=== PATIENT | male | born 1960 | race African-American/Black ===

== ENCOUNTER → 2019-11-29 15:03 | Outpatient (CLI) | payer BC, SELFPAY ==
--- NOTE | ~2019-11-29 | XR_ITS ---
XR knee RT 3V 11/29/2019 15:27 Indication: Right knee pain Procedure: 3 views right knee Comparison: 06/21/2019 Findings: There is mild-moderate osteoarthritis of the right knee, most advanced in the medial compar tment. There is a moderate joint effusion. No acute fracture or traumatic malalignment. Impression: 1: Mild-moderate osteoarthritis of the right knee. 2: Moderate joint effusion. Reviewed, dictated and finalized at location B. RR TECHNICIAN Impression: 1: Mild-moderate osteoarthritis of the right knee. 2: Moderate joint effusion.
== END ==
PROVIDERS: PCP Internal Medicine; Visit Provider Internal Medicine
DX: M25.461 Effusion, right knee (principal); M17.11 Unilateral primary osteoarthritis, right knee
CPT/HCPCS: 73562

== ENCOUNTER 2021-06-18 14:16 | Emergency (ER) | payer BC, SELFPAY ==
[2021-06-18] VITALS (15 sets, daily range): BP systolic 152–245; BP diastolic 98–225; PULSE 84–111; RESP 14–25; TEMP 36.4; O2SAT 96–100
--- NOTE | 2021-06-18 14:27 | ECG_ITS ---
Measurements Intervals [place] Rate: 112 P: 62 FL: 172 QRS: -70 QRSD: 109 T: 49 QT: 364 QTc: 497 Interpretive Statements SINUS TACHYCARDIA LEFT ANTERIOR FASCICULAR BLOCK EXTENSIVE ANTERIOR INFARCT, AGE INDETERMINATE INFERIOR INFARCT, AGE INDETERMINATE ABNORMAL ECG Electronically Signed On 06-18-2021 14:51:29 CDT by Keny Reid D.O.
[2021-06-18 15:06] LABS: Basophils Absolute Auto 0.1 K/mm3 (0.0-0.1); Basophils Percent Auto 0.5 % (0.2-1.2); Eosinophils Absolute Auto 0.3 K/mm3 (0-0.3); Eosinophils Percent Auto 2.8 % (0-4.4); Hematocrit 40.3 % (42.0-52.0); Hemoglobin 12.6 g/dL (14.0-18.0); Immature Granulocyte Absolute 0.03 K/mm3 (0.00-0.031); Immature Granulocyte Percent A 0.3 % (0-0.5); Lymphocytes Absolute Auto 1.12 K/mm3 (0.9-3.2); Lymphocytes Percent Auto 12.2 % (18.3-44.2); Mean Corpuscular HGB Conc 31.3 g/dl (32-36); Mean Corpuscular Hemoglobin 29.9 pg (26-34); Mean Corpuscular Volume 95.7 fl (80-100); Mean Platelet Volume 11.4 fl (7.4-10.4); Monocytes Absolute Auto 0.5 K/mm3 (0.1-0.6); Monocytes Percent Auto 5.1 % (2.6-8.5); Neutrophils Absolute Auto 7.3 K/mm3 (1.3-6.7); Neutrophils Percent Auto 79.1 % (45.5-73.1); Platelet Count Result 299 k/mm3 (150-375); Red Blood Count 4.21 M/mm3 (4.6-6.20); Red Cell Distribution Width 13.3 % (11.5-14.5); White Blood Count 9.2 K/mm3 (4.5-10.0)
[2021-06-18 15:21] LABS: Alanine Aminotransferase 13 U/L (4-50); Albumin Level 3.8 g/dL (3.5-5.1); Alkaline Phosphatase 128 U/L (38-126); Anion Gap 8 mmol/L (8-16); Aspartate Amino Transferase 35 U/L (17-59); Bilirubin,Total 0.3 mg/dL (0.2-1.3); Blood Urea Nitrogen 40 mg/dL (9-20); Calcium 9.1 mg/dL (8.4-10.2); Carbon Dioxide 21 mmol/L (22-30); Chloride 116 mmol/L (98-107); Estimated CRCL calculation 30 ml/min; Estimated Glomerular Filt Rate 25; Glucose 163 mg/dL (65-110); Potassium 3.9 mmol/L (3.4-5.0); Sodium 145 mmol/L (137-145)
--- NOTE | 2021-06-18 15:56 | ED.GENADULT ---
HPI - General Adult General Chief complaint: Recheck/Abnormal Lab/Rx <Lizeth Kauffman MD - Last Filed: 06/19/21 07:43> Stated complaint: blood pressure elevated <Lizeth Kauffman MD - Last Filed: 06/19/21 07:43> Time Seen by Provider: 06/18/21 15:35 <Lizeth Kauffman MD - Last Filed: 06/19/21 07:43> Source: patient <Lizeth Kauffman MD - Last Filed: 06/19/21 07:43> History of Present Illness HPI narrative: Patient is 61 y/o male complaining of high blood pressure. He states that he was in Dr. Laws's office today and sent here because BP was too high. He does not recall how high his BP was. He states that he has known history of hypertension, but ran out of meds 2 weeks ago. This obviously has aggravated his BP. He denies any headache, chest pain or SOB. <Lizeth Kauffman MD - Last Filed: 06/19/21 07:43> Related Data Home medications: Home Medications Medication Instructions Recorded Confirmed amlodipine 10 mg tablet 10 mg PO DAILY 11/20/19 10/03/20 aspirin 81 mg tablet,delayed 81 mg PO DAILY 11/20/19 10/03/20 release losartan 100 mg tablet 100 mg PO DAILY 06/06/20 10/03/20 <Lizeth Kauffman MD - Last Filed: 06/19/21 07:43> Allergies/adverse reactions: Allergies Allergy/AdvReac Type Severity Reaction Status Date / Time No Known Allergies Allergy Unverified 06/18/21 15:34 <Lizeth Kauffman MD - Last Filed: 06/19/21 07:43> Review of Systems Constitutional: Constitutional: Denies chills, Denies fever(s), Denies headache(s) and Denies weakness <Lizeth Kauffman MD - Last Filed: 06/19/21 07:43> Eyes: Eyes: Denies blurry vision <Lizeth Kauffman MD - Last Filed: 06/19/21 07:43> ENT: Denies headache(s) and Denies neck pain <Lizeth Kauffman MD - Last Filed: 06/19/21 07:43> Cardiovascular: Cardiovascular: Denies chest pain and Denies dyspnea <Lizeth Kauffman MD - Last Filed: 06/19/21 07:43> Respiratory: Respiratory: Denies cough and Denies dyspnea <Lizeth Kauffman MD - Last Filed: 06/19/21 07:43> Gastrointestinal: Gastrointestinal: Denies abdominal pain, Denies diarrhea, Denies nausea and Denies vomiting <Lizeth Kauffman MD - Last Filed: 06/19/21 07:43> Genitourinary: Genitourinary: Denies hematuria and Denies dysuria <Lizeth Kauffman MD - Last Filed: 06/19/21 07:43> Musculoskeletal: Musculoskeletal: Denies back pain and Denies neck pain <Lizeth Kauffman MD - Last Filed: 06/19/21 07:43> Neurologic: Denies headache(s) and Denies weakness <Lizeth Kauffman MD - Last Filed: 06/19/21 07:43> [facility] Past Medical History Medical History: Medical History 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 Chronic kidney disease (CKD) stage G3a/A1, moderately decreased glomerular filtration rate (GFR) between 45-59 mL/min/1.73 square meter and albuminuria creatinine ratio less than 30 mg/g 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 and stage 1 chronic kidney disease Obesity Obstructive sleep apnea Osteoarthritis of right knee <Lizeth Kauffman MD - Last Filed: 06/19/21 07:43> Family History Family History: Family History Father Cerebrovascular accident <Lizeth Kauffman MD - Last Filed: 06/19/21 07:43> Social History Social History: Social History Smoking status: Never smoker Second hand tobacco smoke exposure: No Alcohol intake: current Gender identity (if verbalized by the patient): Male <Lizeth Kauffman MD - Last Filed: 06/19/21 07:43> Exam Const: General: no acute distress and well developed <Lizeth Kauffman MD - Last Filed: 06/19/21 07:43> Orientation/consciousness: oriented to person, oriented to place, oriented to time and patient oriented x3 <Lizeth Kauffman MD - Last Filed: 0
[2021-06-18] MEDS: cloNIDine HCL 0.1 MG TABLET PO (15:58)
[2021-06-18] MEDS: amLODIPine BESYLATE 5 MG TABLET 10 MG PO (15:58)
--- NOTE | 2021-06-18 16:04 | PC.NURSE ---
Pt accidently dropped clonidine pill on floor. Had to override in pyxis for a new one
[2021-06-18] MEDS: FUROSEMIDE 20 MG TABLET 40 MG PO (16:26)
[2021-06-18] MEDS: LOSARTAN POTASSIUM 100 MG TABLET PO (16:26)
[2021-06-18] MEDS: hydrALAZINE HCL 20 MG/ML VIAL 10 MG IV PUSH (16:57)
[2021-06-18] MEDS: carvediloL 25 MG TABLET PO (17:49)
[2021-06-18] MEDS: LORazepam (*CRX) 0.5 MG TABLET 1 MG PO (17:49)
[2021-06-18 18:28] LABS: Add Urine Microscopic? YES; Appearance Urine Clear (Clear); Bilirubin Urine Negative (Negative); Blood Urine 1+ (Negative); Color Urine Yellow (Yellow); Glucose Urine UA Negative (Negative); Ketones Urine Negative (Negative); Leukocyte Esterase Ur Negative LEU/UL (Negative); Mucus Urine Rare /lpf; Nitrate Urine Negative (Negative); Protein Urine 3+ mg/dL (Negative); Specific Grav Ur 1.022 (1.001-1.035); Urobilinogen Urine Negative mg/dL (<2.0); WBC Urine 0-3 /hpf
[2021-06-18] MEDS: hydrALAZINE HCL 20 MG/ML VIAL IV PUSH (18:53)
== END 2021-06-18 20:46 | disposition home or self-care (01) ==
PROVIDERS: Emergency Medicine; Emergency Provider Emergency Medicine; PCP Family Medicine
DX: I13.0 Hypertensive heart and chronic kidney disease with heart failure and stage 1 through stage 4 chronic kidney disease, or unspecified chronic kidney disease (principal); Z91.14 Patient's other noncompliance with medication regimen; N18.31 Chronic kidney disease, stage 3a; I50.42 Chronic combined systolic (congestive) and diastolic (congestive) heart failure; M10.30 Gout due to renal impairment, unspecified site; G47.33 Obstructive sleep apnea (adult) (pediatric); M17.11 Unilateral primary osteoarthritis, right knee; E66.9 Obesity, unspecified; Z68.41 Body mass index [BMI] 40.0-44.9, adult; R00.0 Tachycardia, unspecified; I44.4 Left anterior fascicular block; R94.31 Abnormal electrocardiogram [ECG] [EKG]
CPT/HCPCS: 36415; 80053; 81001; 85025; 93005; 96374; 96375; 99284; A9270; J0360

== ENCOUNTER 2021-07-25 20:52 | Inpatient (IN) | payer BC, SELFPAY ==
--- NOTE | ~2021-07-25 | XR_ITS ---
EXAMINATION: XR chest 1V portable 07/25/2021 21:55 INDICATION: Transient alteration of awareness PROCEDURE: AP portable chest COMPARISON: No prior studies for comparison. FINDINGS: The lungs are clear. The cardiomediastinal silhouette is within normal limits. There are no pleural effusions. There is no pneumothorax suspected. IMPRESSION: 1: NO ACUTE CARDIOPULMONARY DISEASE. Reviewed, dictated and finalized at location A.
--- NOTE | ~2021-07-25 | CT_ITS ---
EXAMINATION: CT brain wo con DATE: 07/25/2021 22:18 INDICATION: Altered mental status TECHNIQUE: Computed tomography (CT) of the head was performed without intravenous contrast. The dose- length product was 605.33 mGy-cm. Automated exposure control and iterative reconstruction technique w ere employed. COMPARISON: None FINDINGS: There is hypodensity of the left parietal lobe consistent with acute/subacute infarction. M ild mass effect. No hemorrhage. No midline shift. There is a chronic right cerebellar infarction. The re is intracranial atherosclerosis. No ventriculomegaly or midline shift. Basilar cisterns are patent . Paranasal sinuses and mastoids are pneumatized. Midline sagittal images are unremarkable. IMPRESSION: 1. Regional hypodensity of the left parietal lobe, consistent with acute/subacute infarction. No asso ciated hemorrhage. 2: Chronic right cerebellar infarction. Dr. Akbar Cain discussed with Dr. Devante Morataya MD at 07/25/2021 22:23 CDT. Reviewed, dictated and finalized at location A. IMPRESSION: 1. Regional hypodensity of the left parietal lobe, consistent with acute/subacu te infarction. No associated hemorrhage. 2: Chronic right cerebellar infarction. Dr. Akbar Cain discussed with Dr. Devante Morataya MD at 07/25/2021 22:23 CDT .
--- NOTE | ~2021-07-25 | US_ITS ---
EXAMINATION: US renal BI DATE: 07/26/2021 12:29 INDICATION: Renal insufficiency TECHNIQUE: Multiple grayscale and Doppler ultrasound images of the kidneys were obtained. COMPARISON: 06/19/2019 FINDINGS: The right kidney measures 10.6 x 5.7 x 5.7 cm and contains an 8 mm cyst. The left kidney me asures 9.4 x 5.3 x 5.1 cm and contains a 10 mm cyst. The kidneys demonstrate increased parenchymal ec hogenicity. There is no hydronephrosis. The bladder is decompressed by Irwin catheter. IMPRESSION: 1. Medical renal disease. Reviewed, dictated and finalized at location B. IMPRESSION: 1. Medical renal disease.
--- NOTE | ~2021-07-25 | MR_ITS ---
EXAMINATION: MR brain/brain stem wo con EXAM DATE: 07/26/2021 16:26 INDICATION: Stroke. Altered mental status. TECHNIQUE: Magnetic resonance imaging (MRI) of the brain/brain stem obtained without contrast. Galloitt al T1, axial diffusion, gradient echo (T2*), T1, T2, FLAIR sequences obtained. Correlation is made t o head CT from yesterday. FINDINGS: There is moderate to large left frontoparietal lobe acute infarction. There is no hemorrhag ic conversion. Small old right cerebellar infarction. Mild microangiopathy. No extra-axial collection , obstructive hydrocephalus or brain mass. Orbits and soft tissues are unremarkable. IMPRESSION: 1. Moderate to large acute left frontoparietal lobe infarction. 2. Small old right cerebellar infarction. 3. Mild microangiopathy. Reviewed, dictated and finalized at location A.
--- NOTE | ~2021-07-25 | US_ITS ---
EXAMINATION: US carotid duplex BI DATE: 07/26/2021 12:26 INDICATION: Left parietal lobe infarct. TECHNIQUE: Grayscale, color Doppler, and pulsed Doppler images of the cervical carotid arteries were obtained. The degree of vessel stenosis is placed in one of the following categories: normal, <50%, 5 0-69%, >=70% but less than near-occlusion, near-occlusion, or total occlusion. Note that percent sten osis relative to normal distal artery lumen diameter is indirectly measured from velocity measurement s as described by Sher, et al. Radiology 2003; 229:340-346. COMPARISON: None. FINDINGS: RIGHT: The right common carotid artery (CCA) peak systolic velocity (PSV) is 82 cm/s. The right internal car otid artery (ICA) PSV is 62 cm/s. The right ICA end-diastolic velocity (EDV) is 22 cm/s. The right IC A/CCA PSV ratio is 0.8. Grayscale and color Doppler images yield an estimate of <50% diameter reducti on from plaque in the ICA. There is antegrade flow in the right vertebral artery. LEFT: The left CCA PSV is 114 cm/s. The left ICA PSV is 71 cm/s. The left ICA EDV is 24 cm/s. The left ICA/ CCA PSV ratio is 0.6. Grayscale and color Doppler images yield an estimate of <50% diameter reduction from plaque in the ICA. There is antegrade flow in the left vertebral artery. IMPRESSION: 1. <50% stenosis in the right internal carotid artery. 2. <50% stenosis in the left internal carotid artery. Reviewed, dictated and finalized at location A.
[2021-07-25 20:59] VITALS: BP 265/148; PULSE 83; RESP 17; TEMP 36.5; O2SAT 100
--- NOTE | 2021-07-25 21:05 | ECG_ITS ---
Measurements Intervals [place] Rate: 82 P: 54 LA: 212 QRS: -63 QRSD: 116 T: 86 QT: 421 QTc: 493 Interpretive Statements SINUS RHYTHM WITH FIRST DEGREE AV BLOCK POSSIBLE LEFT ATRIAL ENLARGEMENT LEFT ANTERIOR FASCICULAR BLOCK VOLTAGE CRITERIA FOR LVH BASELINE ARTIFACT- V1 BORDERLINE ST-T WAVE ABNORMALITY- HIGH LATERAL LEADS ABNORMAL ECG Electronically Signed On 07-26-2021 6:27:42 CDT by Keny Reid D.O.
[2021-07-25 21:33] VITALS: BP 255/137; PULSE 78
[2021-07-25] MEDS: niCARdipine 20 MG/200 ML 20 MG/200 ML BAG 50 MG IV CONT (21:33)
[2021-07-25 21:40] LABS: Alveolar/Arterial O2 Gradient 24.7 mmHg; Base Excess ABG -4.7 mEq/l (+/-2.0); Fractional Inspired Oxygen 21 %; HCO3 ABG 19.1 mEq/l (22.0-26.0); Oxygen Content ABG 15.8 %vol (16.0-22.0); Oxygen Saturation ABG 96.8 % (95.0-100.0); Oxyhemoglobin 95.6 % THb (90.0-100.0); PCO2 ABG 31.4 mmHg (35.0-45.0); PO2 ABG 87.4 mmHg (80.0-100.0); PO2 FiO2 Ratio Arterial Blood 4.16 %; Total Hemoglobin 11.7 g/dL (12.0-18.0); pH ABG 7.402 (7.350-7.450)
[2021-07-25 21:41] LABS: Device ROOM AIR; Modified Allen's Test Pass; Site Drawn RIGHT RADIAL
--- NOTE | 2021-07-25 22:22 | ED.AMS ---
HPI - Altered Mental Status General Chief Complaint: Altered Mental Status Stated Complaint: not acting right Time Seen by Provider: 07/25/21 21:11 History of Present Illness HPI narrative: Patient presented with altered mental status history obtained from EMS and neighbor. Patient's neighbor saw his driveway continually pressing his break even though his car was already parked. She went to see what was going on and when attempting to talk to the patient patient when he was responding with answers that made no sense. She called EMS and was brought in for evaluation. EMS noted some antihypertensive medications but was unable to get any other history from the patient. Related Data Home Medications Medication Instructions Recorded Confirmed amlodipine 10 mg PO DAILY 07/26/21 07/26/21 carvedilol 25 mg PO BID 07/26/21 07/26/21 clonidine HCl 0.1 mg PO TID 07/26/21 07/26/21 furosemide 40 mg PO BID 07/26/21 07/26/21 losartan 100 mg PO DAILY 07/26/21 07/26/21 rosuvastatin 10 mg PO DAILY 07/26/21 07/26/21 Allergies Allergy/AdvReac Type Severity Reaction Status Date / Time No Known Allergies Allergy Verified 07/25/21 21:18 Review of Systems Review of Systems: ROS unobtainable: Yes unobtainable due to mental status PMFSH Family History Family History (Updated 07/26/21 @ 03:58 by Lianne Mcmahan RN) Father Cerebrovascular accident Mother Cerebrovascular accident Sibling Acute myocardial infarction Social History Social History Smoking status: Never smoker Second hand tobacco smoke exposure: No Alcohol intake: never Substance use: never Spiritual care concerns: No Exam Narrative: GENERAL: Well-appearing, well-nourished, and in no acute distress. HEAD: Normocephalic, atraumatic. EYES: PERRLA and EOMI. ENT: Nares clear, no rhinorrhea or epistaxis. Mucous membranes moist. NECK: Supple. No masses. No JVD CHEST: Clear to auscultation. No respiratory distress. No wheezes rales or rhonchi HEART: Regular rate and rhythm. No murmur heard. Normal peripheral pulses. ABDOMEN: Soft, nontender, nondistended, normal active bowel sounds. EXTREMITIES: Normal range of motion. 2+ pitting edema symmetric in the bilateral lower extremities SKIN: Warm, dry, no rash. NEURO: Cranial nerves II through XII are intact. There is pronator drift on the right upper extremity otherwise patient has 5 out of 5 strength in all extremities and is responding to verbal commands alert and oriented to self PSYCH: Normal mood and affect. Course Reevaluation(s) Reevaluation #1: Patient has a no significant change in his mental status or his neurological exam. Case discussed with progressive die maker, neurology and hospitalist. Patient be admitted for further manage Date: 07/25/21 Time: 23:51 Vital Signs Vital signs: Vital Signs Temperature 36.5 C 07/25/21 20:59 Pulse Rate 83 07/25/21 20:59 Respiratory Rate 17 07/25/21 20:59 Blood Pressure 265/148 H 07/25/21 20:59 Pulse Oximetry 100 07/25/21 20:59 Temperature 36.8 C 07/26/21 04:00 Pulse Rate 93 07/26/21 07:54 Respiratory Rate 14 07/26/21 06:00 Blood Pressure 177/102 H 07/26/21 06:00 Pulse Oximetry 99 07/26/21 06:00 MDM - Altered Mental Status MDM Narrative Medical decision making narrative: Patient presented with altered mental status on initial evaluation his neurological exam was nonfocal there is a questionable pronator drift on the right upper extremity otherwise cranial nerves appear to be intact he had appropriate strength. Patient's vital signs were significant for hypertension. Given a nonfocal exam and elevated blood pressure primary concern was for hypertensive emergency and hypertensive encephalopathy. Patient was started on a nicardipine drip. Imaging and labs obtained. Imaging concerning for acute versus subacute MCA infarct Case was discussed with neurology given patient's last se
[2021-07-25 22:40] VITALS: BP 211/110; PULSE 94; RESP 16; O2SAT 100
[2021-07-25] MEDS: ASPIRIN 81 MG CHEWABLE TABLET 324 MG PO (22:50)
[2021-07-25] MEDS: CLOPIDOGREL BISULFATE 75 MG TABLET PO (22:50)
[2021-07-25 23:05] LABS: Acetaminophen < 10 ug/mL (10-30); Ammonia < 9 umol/L (9-30); Ethanol < 10 mg/dL (<10); Salicylate < 1.0 mg/dL (2-20)
[2021-07-25 23:11] LABS: Basophils Absolute Auto 0.1 K/mm3 (0.0-0.1); Basophils Percent Auto 0.9 % (0.2-1.2); Eosinophils Absolute Auto 0.2 K/mm3 (0-0.3); Eosinophils Percent Auto 2.7 % (0-4.4); Hematocrit 38.8 % (42.0-52.0); Hemoglobin 12.3 g/dL (14.0-18.0); Immature Granulocyte Absolute 0.01 K/mm3 (0.00-0.031); Immature Granulocyte Percent A 0.2 % (0-0.5); Lymphocytes Percent Auto 14.1 % (18.3-44.2); Mean Corpuscular HGB Conc 31.7 g/dl (32-36); Mean Corpuscular Hemoglobin 30.3 pg (26-34); Mean Corpuscular Volume 95.6 fl (80-100); Mean Platelet Volume 12.5 fl (7.4-10.4); Monocytes Absolute Auto 0.4 K/mm3 (0.1-0.6); Monocytes Percent Auto 6.7 % (2.6-8.5); Neutrophils Absolute Auto 4.8 K/mm3 (1.3-6.7); Neutrophils Percent Auto 75.4 % (45.5-73.1); Platelet Count Result 251 k/mm3 (150-375); Red Blood Count 4.06 M/mm3 (4.6-6.20); Red Cell Distribution Width 12.3 % (11.5-14.5); White Blood Count 6.4 K/mm3 (4.5-10.0)
[2021-07-25 23:12] LABS: Prothrombin Time 12.8 Seconds (11.1-14.7)
[2021-07-25 23:13] LABS: Ethanol < 10 mg/dL (<10); Partial Thromboplastin Time 30.2 SECONDS (22.3-36.8)
[2021-07-25 23:16] LABS: Alanine Aminotransferase 15 U/L (4-50); Albumin Level 3.9 g/dL (3.5-5.1); Alkaline Phosphatase 122 U/L (38-126); Anion Gap 10 mmol/L (8-16); Aspartate Amino Transferase 32 U/L (17-59); Bilirubin,Total 0.5 mg/dL (0.2-1.3); Blood Urea Nitrogen 52 mg/dL (9-20); Calcium 9.8 mg/dL (8.4-10.2); Carbon Dioxide 18 mmol/L (22-30); Chloride 110 mmol/L (98-107); Estimated CRCL calculation 26 ml/min; Estimated Glomerular Filt Rate 20; Glucose 98 mg/dL (65-110); Potassium 3.9 mmol/L (3.4-5.0); Sodium 138 mmol/L (137-145)
[2021-07-25 23:23] LABS: NT Pro B Type Natriuretic Pept 713 pg/mL (5-100)
[2021-07-25 23:33] VITALS: BP 159/96; PULSE 93
[2021-07-25 23:53] LABS: Creatine Kinase 352 U/L (55-170); Troponin I 0.132 ng/mL (0.000-0.034)
[2021-07-26] VITALS (20 sets, daily range): BP systolic 143–227; BP diastolic 90–127; PULSE 64–93; RESP 12–24; TEMP 36.3–36.8; O2SAT 93–100; BMI 36.6
--- NOTE | 2021-07-26 | ECHO_ITS ---
Patient Info Name: Vladimir Montes Age: 61 years : 1960 Gender: Male Ht: 73 in Wt: 277 lbs BSA: 2.59 m2 HR: 76 bpm BP: 177 / 102 mmHg Technical Quality: Fair Exam Date: 07/26/2021 11:08 AM Exam Location: [facility] Pulmonary Patient Status: Inpatient Admit Date: 07/25/2021 Staff Ordering Physician: Kael Garcia MD [employer] M113: Tiffany Arellano RDCS Attending Provider: Kael Garcia MD Exam Type: CA echo doppler color flow Study Info Complete two-dimensional, color flow and Doppler transthoracic echocardiogram is performed. Summary 1. Complete two-dimensional, color flow and Doppler transthoracic echocardiogram is performed. 2. Left ventricular systolic function is normal, estimated at 65-70%. 3. There is severely increased left ventricular wall thickness. 4. The left ventricular diastolic function is grade I diastolic dysfunction. 5. There is mild aortic valve sclerosis. 6. There is mild tricuspid valve regurgitation. 7. No pulmonary hypertension, estimated pulmonary arterial systolic pressure is 9 mmHg. Left Ventricle Left ventricular chamber dimension is normal. Left ventricular systolic function is normal, estimated at 65-70%. There is severely increased left ventricular wall thickness. Left ventricular septal wall motion is normal. The left ventricular diastolic function is grade I diastolic dysfunction. Right Ventricle Right ventricular chamber dimension is normal. Right ventricular systolic function is normal. Left Atria Left atrial chamber dimension is normal. Right Atria Right atrial chamber dimension is normal. Atrial Septum Intact interatrial septum visualized by color flow imaging. Aortic Valve The aortic valve is trileaflet. There is mild aortic valve sclerosis. There is no aortic valve stenosis. There is no aortic valve regurgitation. Pulmonic Valve The pulmonic valve is normal. There is no pulmonic valve stenosis. There is no pulmonic regurgitation. Mitral Valve The mitral valve has normal leaflets. There is no mitral valve stenosis. There is no mitral valve regurgitation. Tricuspid Valve The tricuspid valve leaflets are normal. There is no significant tricuspid valve stenosis. There is mild tricuspid valve regurgitation. No pulmonary hypertension, estimated pulmonary arterial systolic pressure is 9 mmHg. Pericardium/Pleural The pericardium appears normal. There is no pericardial effusion. Inferior Vena Cava Normal inferior vena cava with >50% collapse upon inspiration consistent with Empty right atrial pressure, 5 mmHg. Aorta The aortic root size at the sinus of Valsalva is normal. The prox ascending aorta size is normal. Left Ventricular Outflow Tract Name Value Normal LVOT 2D LVOT Diameter 2.0 cm LVOT Doppler LVOT Peak Gradient 4 mmHg LVOT Mean Gradient 3 mmHg LVOT VTI 18 cm LVOT VTI/AV VTI Ratio 0.6 LVOT Stroke Volume 56 ml LVOT CO 4.1 l/min
[2021-07-26 00:10] LABS: Add Urine Microscopic? YES; Appearance Urine Clear (Clear); Bilirubin Urine Negative (Negative); Blood Urine 2+ (Negative); Color Urine Straw (Yellow); Glucose Urine UA Negative (Negative); Ketones Urine Negative (Negative); Leukocyte Esterase Ur Negative LEU/UL (Negative); Mucus Urine Rare /lpf; Nitrate Urine Negative (Negative); Protein Urine 3+ mg/dL (Negative); Specific Grav Ur 1.012 (1.001-1.035); Squamous Epithelial Cell Urine Rare /hpf (Few); Urobilinogen Urine Negative mg/dL (<2.0)
[2021-07-26 00:15] LABS: Amphetamine Screen Urine Negative (Negative); Barbiturate Screen Urine Negative (Negative); Benzodiazepines Screen Urine Negative (Negative); Cannabinoid Screen Urine Negative (Negative); Cocaine Screen Urine Negative (Negative); Methadone Screen Urine Negative (Negative); Opiate Screen Urine Negative (Negative); Phencyclidine Screen Urine Negative (Negative)
[2021-07-26] MEDS: niCARdipine 20 MG/200 ML 20 MG/200 ML BAG 50 MG IV CONT (01:45)
[2021-07-26] MEDS: SODIUM CHLORIDE 0.9% IV 1,000 ML 125 ML IV CONT (01:48)
--- NOTE | 2021-07-26 03:50 | PC.NURSE ---
This patient, Simon Gilbert Jr., was admitted to Intensive Care Unit-4 @ 0315 . Patient/family oriented to hospital policies and general routines including ID bracelet, bed and alarms, visiting hours, pain management, procedures, bathroom and other care routines, personal items, smoking policy, room service/diet, and visiting hours. Information on how to activate the Rapid Response Team has been discussed. Patient/Family are encouraged to report perceived risks to care and to ask questions if they do not understand what they are told or what they should do.
--- NOTE | 2021-07-26 05:01 | PM.IMHP ---
H&P: HPI History of Present Illness Date/Time: 07/26/21 05:01 Chief Complaint: Altered mental status Narrative: patient presents to the hospital today with altered mental status. Apparently he was noted to be confused in the driveway in the car and pressing his break continuously. The neighbor went to see what was going on and when attempted to talk to the patient he responded with answers that made no sense and hence she called the EMS and was brought in for evaluation. Upon arrival to the ER his initial vitals were extremely elevated at 260 5/148 and hence was put on nicardipine drip. He remained confused but able to move all his extremities. When asked question only able to give few of the answers like his name. Otherwise noted to have difficulty with words and some of the words does not make sense at all. He is otherwise following all my commands and follows them appropriately. Rest of the review of system could not be completed because of the mental status. Review of Systems Review of Systems: ROS unobtainable: Yes unobtainable due to medical condition and unobtainable due to mental status [facility] Family History Family History (Updated 07/26/21 @ 03:58 by Lianne Mcmahan RN) Father Cerebrovascular accident Mother Cerebrovascular accident Sibling Acute myocardial infarction Social History Social History Smoking status: Never smoker Second hand tobacco smoke exposure: No Alcohol intake: never Substance use: never Spiritual care concerns: No Meds Home Medications and Allergies Home Medications Medication Instructions Recorded Confirmed Type amlodipine 10 mg PO DAILY 07/26/21 07/26/21 History carvedilol 25 mg PO BID 07/26/21 07/26/21 History clonidine HCl 0.1 mg PO TID 07/26/21 07/26/21 History furosemide 40 mg PO BID 07/26/21 07/26/21 History losartan 100 mg PO DAILY 07/26/21 07/26/21 History rosuvastatin 10 mg PO DAILY 07/26/21 07/26/21 History Allergies Allergy/AdvReac Type Severity Reaction Status Date / Time No Known Allergies Allergy Verified 07/25/21 21:18 Vital Signs Vital Signs - 24 hr 07/25/21 20:59 07/25/21 21:33 07/25/21 22:40 Temperature 97.7 F Pulse Rate 83 78 94 Respiratory Rate 17 16 Blood Pressure 265/148 H 255/137 H 211/110 H Pulse Oximetry 100 100 07/25/21 23:33 07/26/21 00:15 07/26/21 01:18 Temperature Pulse Rate 93 82 90 Respiratory Rate 21 H 23 H Blood Pressure 159/96 H 167/95 H 211/114 H Pulse Oximetry 100 100 07/26/21 01:45 07/26/21 02:25 Temperature Pulse Rate 85 87 Respiratory Rate 16 Blood Pressure 227/119 H 219/123 H Pulse Oximetry 100 Exam Narrative: GENERAL: Well-appearing, well-nourished, and in no acute distress. HEAD: Normocephalic, atraumatic. EYES: PERRLA and EOMI. ENT: Nares clear, no rhinorrhea or epistaxis. Mucous membranes moist. NECK: Supple. No masses. No JVD CHEST: Clear to auscultation. No respiratory distress. No wheezes rales or rhonchi HEART: Regular rate and rhythm. No murmur heard. Normal peripheral pulses. ABDOMEN: Soft, nontender, nondistended, normal active bowel sounds. EXTREMITIES: Normal range of motion. No edema cyanosis or clubbing SKIN: Warm, dry, no rash. NEURO: Cranial nerves II through XII are intact. no motor deficits 5 x 5 motor strength in all 4 extremities deep tendon reflexes equal and symmetrical Babinski's sign equivocal expressive aphasia noted follows verbal commands appropriately PSYCH: Normal mood and affect. H&P: Results Labs Labs: Short CBC 07/25/21 Range/Units 22:42 WBC 6.4 (4.5-10.0) K/mm3 Hgb 12.3 L (14.0-18.0) g/dL Hct 38.8 L (42.0-52.0) % Plt Count 251 (150-375) k/mm3 BMP 07/25/21 22:42 Sodium 138 Potassium 3.9 Chloride 110 H Carbon Dioxide 18 L BUN 52 H Creatinine 3.80 H Glucose 98 Calcium 9.8 Cardiac Enzymes 07/25/21 Range/Units 22:42 Total Cr
[2021-07-26 06:04] LABS: Basophils Percent Auto 0.7 % (0.2-1.2); Eosinophils Absolute Auto 0.2 K/mm3 (0-0.3); Eosinophils Percent Auto 2.7 % (0-4.4); Hematocrit 34.4 % (42.0-52.0); Hemoglobin 10.9 g/dL (14.0-18.0); Immature Granulocyte Absolute 0.02 K/mm3 (0.00-0.031); Immature Granulocyte Percent A 0.4 % (0-0.5); Lymphocytes Absolute Auto 0.94 K/mm3 (0.9-3.2); Lymphocytes Percent Auto 16.7 % (18.3-44.2); Mean Corpuscular HGB Conc 31.7 g/dl (32-36); Mean Corpuscular Hemoglobin 29.3 pg (26-34); Mean Corpuscular Volume 92.5 fl (80-100); Mean Platelet Volume 12.6 fl (7.4-10.4); Monocytes Absolute Auto 0.4 K/mm3 (0.1-0.6); Monocytes Percent Auto 7.7 % (2.6-8.5); Neutrophils Percent Auto 71.8 % (45.5-73.1); Platelet Count Result 231 k/mm3 (150-375); Red Blood Count 3.72 M/mm3 (4.6-6.20); Red Cell Distribution Width 12.2 % (11.5-14.5); White Blood Count 5.6 K/mm3 (4.5-10.0)
[2021-07-26 06:13] LABS: Alanine Aminotransferase 12 U/L (4-50); Albumin Level 3.3 g/dL (3.5-5.1); Alkaline Phosphatase 103 U/L (38-126); Anion Gap 6 mmol/L (8-16); Aspartate Amino Transferase 31 U/L (17-59); Bilirubin,Total 0.6 mg/dL (0.2-1.3); Blood Urea Nitrogen 50 mg/dL (9-20); Calcium 9.2 mg/dL (8.4-10.2); Carbon Dioxide 21 mmol/L (22-30); Chloride 110 mmol/L (98-107); Estimated CRCL calculation 30 ml/min; Estimated Glomerular Filt Rate 23; Glucose 83 mg/dL (65-110); Potassium 3.4 mmol/L (3.4-5.0); Sodium 137 mmol/L (137-145)
[2021-07-26 06:17] LABS: Cholesterol 252 mg/dL (0-200); HDL Direct 46 mg/dL; Triglycerides 170 mg/dL (<150)
[2021-07-26 06:28] LABS: LDL Cholesterol Direct 125 mg/dL
[2021-07-26 07:43] LABS: Hemoglobin A1C 4.8 % (<5.7)
[2021-07-26] MEDS: LOSARTAN POTASSIUM 100 MG TABLET PO (07:53)
[2021-07-26] MEDS: cloNIDine HCL 0.1 MG TABLET PO ×3 (07:53→18:12)
[2021-07-26] MEDS: ROSUVASTATIN 10 MG TABLET PO (07:54)
[2021-07-26] MEDS: amLODIPine BESYLATE 5 MG TABLET 10 MG PO (07:54)
[2021-07-26] MEDS: ASPIRIN 81 MG ENTERIC TABLET PO (07:54)
[2021-07-26] MEDS: CLOPIDOGREL BISULFATE 75 MG TABLET PO (07:54)
[2021-07-26] MEDS: carvediloL 25 MG TABLET PO ×2 (07:54→18:12)
[2021-07-26] MEDS: niCARdipine 20 MG/200 ML 20 MG/200 ML BAG 25 MG IV CONT (09:13)
--- NOTE | 2021-07-26 09:23 | WPDCNINT ---
Assessment and Plan Assessment and plan (1) Acute stroke due to ischemia: Code(s): I63.9 - Cerebral infarction, unspecified Status: Acute Assessment and Plan: Acute /subacute left parietal area. Patient presented out of the tPA window. stroke workup with MRI brain. Carotid ultrasound. Echo fasting lipid profile Neurochecks Neurology consult Speech PT and OT evaluation (2) Acute encephalopathy: Code(s): G93.40 - Encephalopathy, unspecified Status: Acute Assessment and Plan: Likely secondary to CVA or hypertensive emergency Patient is alert awake but unable to check orientation due to aphasia Neurochecks (3) Hypertensive emergency: Code(s): I16.1 - Hypertensive emergency Status: Acute Assessment and Plan: Continue nicardipine infusion to drop blood pressure by 15-20% with goal of systolic of 170-180 Patient's p.o. home meds of losartan amlodipine Coreg and clonidine were resumed (4) Acute kidney injury: Code(s): N17.9 - Acute kidney failure, unspecified Status: Acute Assessment and Plan: Baseline creatinine is unknown patient presented with creatinine 3.8 Improved to 3.3 today Continue monitor urine output electrolytes creatinine Renal ultrasound Consult nephrology (5) Edema: Code(s): R60.9 - Edema, unspecified Status: Acute Assessment and Plan: Lower extremity edema appears chronic Hold Lasix today due to elevated creatinine (6) Elevated troponin: Code(s): R77.8 - Other specified abnormalities of plasma proteins Status: Acute Assessment and Plan: Slightly elevated troponin in the presence of hypertensive emergencies stroke and acute kidney injury Likely stress mediated response Patient denies any chest pain at this time EKG is abnormal but does not show any ST elevations. Serial troponins, aspirin, echo Additional Plan DVT prophylaxis -SCDs until blood pressure is adequately controlled Nutrition -speech evaluation Code Status - Full Code Will discuss with hospice social worker regarding trying to contact his family if there is one Total Critical Care Time - 35 minutes Due to a high probability of clinically significant, life threatening deterioration, the patient required my highest level of preparedness to intervene emergently and I personally spent this critical care time directly and personally managing the patient. This critical care time included obtaining a history; examining the patient; pulse oximetry; ordering and review of studies; arranging urgent treatment with development of a management plan; evaluation of patient's response to treatment; frequent reassessment; and discussions with other providers. It was exclusive of separately billable procedures and treating other patients and teaching time. Please see Assessment and Plan section and the rest of the note for further information on patient assessment and treatment Family Program Specialist Consult Note Consult date: 07/26/21 Time Seen: 07:30 HPI: Simon Gilbert Jr. is a 61 year old male was brought to ED yesterday when his neighbor due to altered mental status. Patient's neighbor noticed patient in his driveway behaving inappropriately and when he approached him and try to talk to him patient appeared confused and had inappropriate answers. Hence he brought him to the ED. ED patient was unable to provide any meaningful history. His workup showed that he had acute/ subacute CVA on his head CT, his blood pressure was elevated with systolic into 220s and he also had elevated creatinine. Patient was admitted with diagnosis of ischemic CVA and hypertensive emergency. Started on IV nicardipine infusion for blood pressure control. Neurology was consulted. This morning patient is awake, alert but again unable to provide any meaningful history. His speech is inappropriate with use of inappropriate words. He appears to understand the questions and nodes his head appropria
[2021-07-26 10:43] LABS: Phosphorus 4.5 mg/dL (2.5-4.5)
[2021-07-26 10:47] LABS: Troponin I 0.152 ng/mL (0.000-0.034)
--- NOTE | 2021-07-26 12:38 | PM.EVENT ---
Event Note Event Note Event Note: EMR software would not allow me to open a consult note. Vladimir is a very pleasant 61-year-old gentleman who has multiple medical problems including severe hypertension, medicine noncompliance, chronic kidney disease with a baseline creatinine around 3, anemia, gout, hyperlipidemia pulmonary hypertension, dilated nonischemic cardiomyopathy. The patient came in the hospital because he was found by neighbors in his car pushing his brakes over no over again. He was unable to speak rationally and so they called 911 and he was brought to the ER. He was evaluated in the emergency room and found to have a stroke. He had a CT of the head which showed a lucency in the left parietal lobe. He is going for an MRI soon. His blood pressure was very high, 265/148 on 1st check. His placed on meds, admitted to the ICU. The patient is currently on a nicardipine drip to titrate between 170 and 180 for permissive hypertension because of the acute stroke. The patient is able to give some history. He recognized me. He has trouble with most words. He says that he has been taking his blood pressure at home and has been getting readings between 130 and 150. He has not been getting anything above 170 at home he says. He does have a history of not taking his medications in the past but says that he has been taking his meds. ROS: He denies any chest pain or shortness of breath. No skin rash or joint pains. No ENT or psychiatric or endocrine issues. No swelling joint pains or skin rash. No nausea vomiting diarrhea constipation or abdominal pain. Neurologic is as above . No urologic issues. No bloody urine foamy urine kidney stones or bladder infections. Past history is as above allergies: NKDA social history he does not smoke or drink family history: Unavailable physical exam: Well-developed well-nourished male in no acute distress. Skin no rash or subcu nodules. Head normocephalic atraumatic. Eyes normal sclerae and conjunctivae. Mouth normal lips teeth and gums. Neck no nodes no thyromegaly no carotid bruits. Lungs are symmetric and clear to auscultation and percussion. Heart regular rate and rhythm no rub or gallop. Abdomen bowel sounds positive soft nontender no HSM no masses no bruits. Extremities show no cyanosis clubbing or edema. Psych he the patient is calm and comfortable not anxious or depressed in surprisingly good spirits. Neuro: Alert. It is unclear whether he is oriented. Motor 5/5 in all groups. Cranial nerves 2-12 look good. Tongue is midline. Cerebellar normal rapid alternating movements. Reflexes 2+ and equal in the biceps tendons. Labs: Hemoglobin 12.3. Sodium 138, potassium 3.9, CO2 18, BUN 52, creatinine 3.8, calcium 9.8, CK 352, ALT 15, UA shows 3+ protein. CT of the brain shows a lucency in the left parietal lobe. Impression: 1. This patient has chronic kidney disease. His baseline creatinine is around 3. This is due to hypertension and vascular disease. His creatinine seems stable right now. He is making urine. Will follow things along. 2. The patient had a stroke. He has aphasia. At this point he does not seem to have any gross weakness on 1 side or the other. Hopefully things will gradually improve. From descriptions it sounds like he is more interactive with me than he was last evening. 3. The patient has hypertension. His blood pressure was extremely high when he came into the hospital. This is much better now, at goal for permissive hypertension. 4. The patient has anemia. This is only mild. No need for Epogen. 5. The patient has CKD MBD. Will check a phosphorus level in the morning. 6. The patient has hyperlipidemia. He is on rosuvastatin for this.
[2021-07-26 17:19] LABS: Troponin I 0.123 ng/mL (0.000-0.034)
[2021-07-27] VITALS (17 sets, daily range): BP systolic 138–210; BP diastolic 89–116; PULSE 63–74; RESP 14–19; TEMP 36.2–36.9; O2SAT 98–99
[2021-07-27 04:28] LABS: Hematocrit 32.8 % (42.0-52.0); Hemoglobin 10.4 g/dL (14.0-18.0); Mean Corpuscular HGB Conc 31.7 g/dl (32-36); Mean Corpuscular Hemoglobin 30.1 pg (26-34); Mean Corpuscular Volume 94.8 fl (80-100); Mean Platelet Volume 12.2 fl (7.4-10.4); Platelet Count Result 224 k/mm3 (150-375); Red Blood Count 3.46 M/mm3 (4.6-6.20); Red Cell Distribution Width 12.2 % (11.5-14.5); White Blood Count 5.5 K/mm3 (4.5-10.0)
[2021-07-27 04:45] LABS: Alanine Aminotransferase 13 U/L (4-50); Alkaline Phosphatase 93 U/L (38-126); Anion Gap 5 mmol/L (8-16); Aspartate Amino Transferase 34 U/L (17-59); Bilirubin,Total 0.5 mg/dL (0.2-1.3); Blood Urea Nitrogen 43 mg/dL (9-20); Calcium 8.7 mg/dL (8.4-10.2); Carbon Dioxide 23 mmol/L (22-30); Chloride 109 mmol/L (98-107); Estimated CRCL calculation 33 ml/min; Estimated Glomerular Filt Rate 26; Glucose 95 mg/dL (65-110); Magnesium 2.3 mg/dL (1.6-2.3); Phosphorus 4.1 mg/dL (2.5-4.5); Potassium 3.6 mmol/L (3.4-5.0); Sodium 137 mmol/L (137-145)
[2021-07-27] MEDS: LOSARTAN POTASSIUM 100 MG TABLET PO (08:00)
[2021-07-27] MEDS: CLOPIDOGREL BISULFATE 75 MG TABLET PO (08:00)
[2021-07-27] MEDS: cloNIDine HCL 0.2 MG TABLET PO ×3 (08:00→18:15)
[2021-07-27] MEDS: ASPIRIN 81 MG ENTERIC TABLET PO (08:00)
[2021-07-27] MEDS: ROSUVASTATIN 10 MG TABLET PO (08:01)
[2021-07-27] MEDS: carvediloL 25 MG TABLET PO ×2 (08:44→18:14)
[2021-07-27] MEDS: FUROSEMIDE 40 MG TABLET PO ×2 (08:45→18:15)
--- NOTE | 2021-07-27 11:54 | PM.EVENT ---
Event Note Event Note Event Note: Us Marketing Director daily progress note for 07/27 Subjective Patient states he feels better although his speech is still altered. He continues to be aphasic although few words are appropriate as he was able to tell me that he is in [facility]. He denies any complaints by noting his head. Limited review of system was obtained due to his aphasia and was negative. Headache has resolved. His blood pressure continues to be elevated although he has been weaned off of nicardipine Objective General: Pt is alert awake and in NAD Lungs/Chest: Trachea central Clear BS B/L, No crackles or wheezing. Cardiac: RRR. Normal S1 S2. No murmurs Circulation: Pedal pulses are intact and symmetrical. Abdomen: Normal bowel sounds. Obese. Soft. NT. ND. Extremities: No clubbing, cyanosis, Warm, bilateral lower extremity edema present : Irwin in place Neurologic: Follows commands. Moves all 4 extremities, muscle strength is equal in all extremities except left upper extremity which seems marginally weaker than right but patient does not feel weak subjectively, PERRL, no facial asymmetry, patient has dysphasia, he seems to understand the question and answers appropriately by nodding his head but his speech is inappropriate with inappropriate words but they are fairly comprehensible, cranial nerves 2-12 intact Skin: No Rash Labs done this morning reviewed and his creatinine is 3. His troponin has trended down Brain MRI IMPRESSION: 1. Moderate to large acute left frontoparietal lobe infarction. 2. Small old right cerebellar infarction. 3. Mild microangiopathy. Carotid Doppler MPRESSION: 1. <50% stenosis in the right internal carotid artery. 2. <50% stenosis in the left internal carotid artery. Renal ultrasound IMPRESSION: 1. Medical renal disease. Echocardiogram has been done and is pending Assessment and plan (1) Acute stroke due to ischemia: Code(s): I63.9 - Cerebral infarction, unspecified Status: Acute Assessment and Plan: Acute /subacute left parietal area. Patient presented out of the tPA window. MRI brain confirmed stroke as above mention Carotid ultrasound reviewed Echo pending Neurochecks Neurology consult pending Speech PT and OT evaluation (2) Acute encephalopathy: Code(s): G93.40 - Encephalopathy, unspecified Status: Acute Assessment and Plan: Likely secondary to CVA or hypertensive emergency Patient is alert awake but unable to check orientation due to aphasia Neurochecks (3) Hypertensive emergency: Code(s): I16.1 - Hypertensive emergency Status: Acute Assessment and Plan: Improved Nicardipine infusion has been weaned off Continue p.o. home meds of losartan amlodipine Coreg and clonidine Clonidine dose increased to 0.2 Added p.r.n. hydralazine and Lopressor (4) chronic kidney disease: Creatinine appears to be at baseline. Patient was seen by Nephrology Continue monitor urine output electrolytes creatinine Renal ultrasound Consult nephrology (5) Edema: Code(s): R60.9 - Edema, unspecified Status: Acute Assessment and Plan: Lower extremity edema appears chronic Resume Lasix (6) Elevated troponin: Code(s): R77.8 - Other specified abnormalities of plasma proteins Status: Acute Assessment and Plan: Slightly elevated troponin in the presence of hypertensive emergencies stroke and acute kidney injury Likely stress mediated response Patient denies any chest pain at this time EKG is abnormal but does not show any ST elevations. Serial troponins have trended down Continue aspirin, echo is pending Additional Plan DVT prophylaxis -SCDs start heparin Nutrition -speech evaluation has been done and patient is on diet Code Status - Full Code PT OT evaluation Transfer out of ICU today
--- NOTE | 2021-07-27 12:01 | PM.EVENT ---
Event Note Event Note Event Note: the patient is feeling better today. Speech therapy is working with the patient now. His speech is a little bit better today, with mildly longer strings of words. No headache or shortness of breath or chest pain. Blood pressure 178/94, pulse 71, respiratory rate 18, temperature 36.5?. Generally he is well-developed well-nourished male in no acute distress. Skin is warm and dry without rash. Head normocephalic atraumatic. Lungs are symmetric and clear. Heart regular rate and rhythm no rub or gallop. Abdomen bowel sounds positive soft nontender. Extremities show no edema. Labs: Hemoglobin 10.4, BUN 43, creatinine 3, albumin 3. Impression: 1. This patient has chronic kidney disease. His baseline creatinine is around 3. This is due to hypertension and vascular disease. His creatinine is better, having fallen from 3.8-3.0.. He is making urine. Will follow things along. 2. The patient had a stroke. He has aphasia. He is getting speech therapy.At this point he does not seem to have any gross weakness on 1 side or the other. Hopefully things will gradually improve. 3. The patient has hypertension. His blood pressure was extremely high when he came into the hospital. This is much better now, at goal for permissive hypertension. 4. The patient has anemia. This is only mild. No need for Epogen. 5. The patient has CKD MBD. Phosphorus level is good. 6. The patient has hyperlipidemia. He is on rosuvastatin for this.
--- NOTE | 2021-07-27 16:13 | PM.EVENT ---
Event Note Event Note Event Note: Subj 61yo male with CKD, COLETTE and HTN here for acute CVA and hypertensive emergency (BP 265/148). Patient came off nicardipine today. Anti-HTN medications were adjusted still allowing for permissive HTN. He is alert but has word finding problems. He denies CP or SOB. Eating okay. No odynophagia or dysphagia. Up walking with therapy. Denies tobacco use or alcohol use. He was in the ED for HTN emergency 06/18/21 due to noncompliance. He has difficulty telling me if he was compliant with medications prior to this hospitalization. Obj AF 97.8 153/104 66 17 99% ra Gen - NARD Chest - CTA bilaterally, nml RR CV - RRR S1/S2 Abd - Soft, NT/ND, Positive BS - Irwin secured draining clear yellow urine. Ext - No pitting pedal edema Neuro - alert. word finding problems but appears to understand questions. no focal weakness. CN intact. Psych - Nml mood and affect; in good spirits Skin - Warm and dry Cr 3.0, BUN 43. Renal US showing medical renal disease. A1c 4.8. Carotid US showing <50% stenosis bilaterally. A/P Acute Encephalopathy - related to the acute CVA HTN Emergency Acute left frontoparietal CVA with aphasia Elevated Troponin - flat CKD - baseline Cr around 3.0 HTN COLETTE Hx of Nonischemic CMP/ Ch diastolic CHF Continue to allow for permissive HTN. Continue ASA, Plavix and Crestor. Continue PT/OT/ST. Renal function stable and at baseline. Echo pending. Okay to move out of ICU. Appreciate nephrology, corporate auditor and neurology input. SCDs for DVT prophylaxis.
[2021-07-27] MEDS: amLODIPine BESYLATE 5 MG TABLET 10 MG PO (21:32)
[2021-07-27] MEDS: LABETALOL HCL INJ 100 MG/20 ML VIAL 20 MG IV PUSH (22:40)
[2021-07-28] VITALS (14 sets, daily range): BP systolic 123–159; BP diastolic 66–103; PULSE 57–82; RESP 16–20; TEMP 36.1–36.7; O2SAT 100
[2021-07-28 05:02] LABS: Hematocrit 31.1 % (42.0-52.0); Hemoglobin 9.8 g/dL (14.0-18.0); Mean Corpuscular HGB Conc 31.5 g/dl (32-36); Mean Corpuscular Hemoglobin 29.3 pg (26-34); Mean Corpuscular Volume 93.1 fl (80-100); Mean Platelet Volume 12.7 fl (7.4-10.4); Platelet Count Result 214 k/mm3 (150-375); Red Blood Count 3.34 M/mm3 (4.6-6.20); Red Cell Distribution Width 12.2 % (11.5-14.5); White Blood Count 5.5 K/mm3 (4.5-10.0)
[2021-07-28 05:33] LABS: Alanine Aminotransferase 11 U/L (4-50); Albumin Level 2.9 g/dL (3.5-5.1); Alkaline Phosphatase 88 U/L (38-126); Anion Gap 5 mmol/L (8-16); Aspartate Amino Transferase 40 U/L (17-59); Bilirubin,Total 0.3 mg/dL (0.2-1.3); Blood Urea Nitrogen 42 mg/dL (9-20); Calcium 8.7 mg/dL (8.4-10.2); Carbon Dioxide 21 mmol/L (22-30); Chloride 110 mmol/L (98-107); Estimated CRCL calculation 33 ml/min; Estimated Glomerular Filt Rate 26; Glucose 110 mg/dL (65-110); Magnesium 2.5 mg/dL (1.6-2.3); Phosphorus 4.1 mg/dL (2.5-4.5); Potassium 3.6 mmol/L (3.4-5.0); Sodium 136 mmol/L (137-145)
[2021-07-28] MEDS: carvediloL 25 MG TABLET PO ×2 (09:06→16:53)
[2021-07-28] MEDS: allopurinoL 300 MG TABLET PO (09:06)
[2021-07-28] MEDS: ROSUVASTATIN 10 MG TABLET PO (09:07)
[2021-07-28] MEDS: ASPIRIN 81 MG ENTERIC TABLET PO (09:07)
[2021-07-28] MEDS: FUROSEMIDE 40 MG TABLET PO ×2 (09:07→16:55)
[2021-07-28] MEDS: LOSARTAN POTASSIUM 100 MG TABLET PO (09:07)
[2021-07-28] MEDS: cloNIDine HCL 0.2 MG TABLET PO (09:07)
[2021-07-28] MEDS: CLOPIDOGREL BISULFATE 75 MG TABLET PO (09:07)
--- NOTE | 2021-07-28 12:10 | PM.PNNEP ---
Progress Note: A&P Additional Plan Impression: 1. This patient has chronic kidney disease. His baseline creatinine is around 3. This is due to hypertension and vascular disease. His creatinine has returned to its baseline. 2. The patient had a stroke. He has aphasia. He is getting speech therapy. 3. The patient has hypertension. He is on carvedilol 25 b.i.d., clonidine 0.2 t.i.d., amlodipine 10 daily, and furosemide. His blood pressure is a little bit below target. I am going to reduce the clonidine and eventually try to eliminate this because of the risk of rebound hypertension. we may need to replace the amlodipine with nifedipine to get better long-acting blood pressure control. 4. The patient has anemia. This is only mild. No need for Epogen. 5. The patient has CKD MBD. Phosphorus level is good. 6. The patient has hyperlipidemia. He is on rosuvastatin for this. Subjective Date/time seen: 07/28/21 12:10 Interval history: the patient is feeling better today. he still has significant aphasia. Review of Systems Cardiovascular: Cardiovascular: Reports no additional cardiovascular complaints Respiratory: Respiratory: Reports no additional respiratory complaints Gastrointestinal: Gastrointestinal: Reports no additional gastrointestinal complaints Genitourinary: Genitourinary: Reports no additional male genitourinary complaints Exam Narrative: WDWN in NAD skin no rash head ncat lungs clear cor reg no rub abd BS+ nontender and soft ext no edema. Objective Data Vital Signs Vital Signs: Vital Signs - 24 hr 07/27/21 14:00 07/27/21 16:00 07/27/21 18:00 Temperature 36.5 C Pulse Rate 66 63 67 Respiratory Rate 17 19 18 Blood Pressure 153/104 H 148/90 H 187/108 H Pulse Oximetry 07/27/21 18:14 07/27/21 20:00 07/27/21 20:40 Temperature 36.2 C L Pulse Rate 68 64 69 Respiratory Rate 18 Blood Pressure 169/98 H Pulse Oximetry 99 07/27/21 22:00 07/27/21 22:40 07/27/21 22:43 Temperature Pulse Rate 65 65 65 Respiratory Rate Blood Pressure 181/107 H 177/107 H Pulse Oximetry 07/28/21 00:00 07/28/21 01:05 07/28/21 02:00 Temperature 36.6 C Pulse Rate 59 L 68 57 L Respiratory Rate 20 Blood Pressure 155/103 H Pulse Oximetry 100 07/28/21 04:00 07/28/21 05:40 07/28/21 06:00 Temperature 36.5 C Pulse Rate 64 76 70 Respiratory Rate 18 Blood Pressure 159/96 H Pulse Oximetry 100 07/28/21 08:00 07/28/21 09:06 07/28/21 10:00 Temperature 36.7 C Pulse Rate 61 80 61 Respiratory Rate 16 Blood Pressure 152/89 H Pulse Oximetry 100 Intake/Output Intake/Output: Intake & Output 07/25/21 07/26/21 07/27/21 07/28/21 23:59 23:59 23:59 23:59 Intake Total 854 065 5548 700 Output Total 2575 1450 1525 Balance 200 -3465 550 825 Meds/Results Medications: Active Medications Generic Name Dose Route Start Last Admin Trade Name Freq PRN Reason Stop Dose Admin Allopurinol 300 mg 07/28/21 09:00 07/28/21 09:06 Allopurinol 300 Mg Tablet PO 300 mg DAILY KAITLIN Administration Amlodipine Besylate 10 mg 07/27/21 21:00 07/27/21 21:32 Amlodipine Besylate 5 Mg Tablet PO 10 mg HS KAITLIN Administration Aspirin 81 mg 07/26/21 09:00 07/28/21 09:07 Aspirin 81 Mg Enteric Tablet PO 81 mg QAM KAITLIN Administration Carvedilol 25 mg 07/26/21 08:00 07/28/21 09:06 Carvedilol 25 Mg Tablet PO 25 mg BIDWM KAITLIN Administration Clonidine HCl 0.2 mg 07/27/21 09:00 07/28/21 09:07 Clonidine Hcl 0.2 Mg Tablet PO 0.2 mg TID KAITLIN Administration Clopidogrel Bisulfate 75 mg 07/26/21 09:00 07/28/21 09:07 Clopidogrel Bisulfate 75 Mg Tablet PO 75 mg QAM KAITLIN Administration Furosemide 40 mg 07/27/21 09:00 07/28/21 09:07 Furosemide 40 Mg Tablet PO 40 mg BID KAITLIN Administration Hydralazine HCl 20 mg 07/27/21 07:30 Hydralazine Hcl 20 Mg/Ml Vial IV PUSH Q4H PRN
--- NOTE | 2021-07-28 12:32 | PM.IMPN ---
Progress Note: A&P Assessment and Plan (1) Non-compliance: Code(s): Z91.19 - Patient's noncompliance with other medical treatment and regimen Status: Acute Assessment and Plan: Non compliance of HTN medications (2) Obstructive sleep apnea: Code(s): G47.33 - Obstructive sleep apnea (adult) (pediatric) Status: Chronic (3) Osteoarthritis of right knee: Qualifiers: Osteoarthritis type: primary Qualified Code(s): M17.11 - Unilateral primary osteoarthritis, right knee Code(s): M17.11 - Unilateral primary osteoarthritis, right knee Status: Chronic (4) Chronic kidney disease (CKD) stage G3a/A1, moderately decreased glomerular filtration rate (GFR) between 45-59 mL/min/1.73 square meter and albuminuria creatinine ratio less than 30 mg/g: Code(s): N18.3 - Chronic kidney disease, stage 3 (moderate) Status: Acute Assessment and Plan: Creat is 3 Continue to watch. (5) CKD (chronic kidney disease): Qualifiers: Chronic kidney disease stage: unspecified stage Qualified Code(s): N18.9 - Chronic kidney disease, unspecified Code(s): N18.9 - Chronic kidney disease, unspecified Status: Inactive Assessment and Plan: CReat is 3, renal US shows medical disease. 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 (7) Stroke: Qualifiers: CVA mechanism: unspecified Qualified Code(s): I63.9 - Cerebral infarction, unspecified Code(s): I63.9 - Cerebral infarction, unspecified Status: Acute Assessment and Plan: MRI shows stroke -Moderate to large acute left frontoparietal lobe infarction. Echo pending, Carotid Doppler less than 50% BL. Pt is on asa, bp control, statin, stable to transfer to medical floor, continue PT and ST. Subjective Date/time seen: 07/28/21 12:32 Interval history: 61yo male with CKD, COLETTE and HTN here for acute CVA and hypertensive emergency. Bp is better pt can transfer to her medical floor today, pt appears garbled, slurred speech and slightly confused continue to monitor in the hospital. Pt has had a stroke. Review of Systems Review of Systems: All systems reviewed & are unremarkable except as noted in HPI and below Constitutional: Constitutional: Denies excessive sweating, Denies fatigue, Denies frequent falls and Denies headache(s) ENT: Denies headache(s) Cardiovascular: Cardiovascular: Denies chest pain, Denies irregular heart rhythm, Denies dyspnea and Denies dyspnea on exertion Respiratory: Respiratory: Denies cough, Denies hemoptysis, Denies dyspnea, Denies dyspnea on exertion and Denies wheezing Gastrointestinal: Gastrointestinal: Denies abdominal pain and Denies change in bowel habits Musculoskeletal: Musculoskeletal: Denies no additional musculoskeletal complaints, Denies limited range of motion and Denies numbness Neurologic: Denies frequent falls, Denies headache(s), Denies numbness and Denies convulsions Psychiatric: Psychiatric: Denies hallucinations and Denies tactile hallucinations Endocrine: Endocrine: Denies excessive sweating, Denies fatigue and Denies flushing Allergic/Immunologic: Allergic/Immunologic: Denies wheezing Exam Const: General: other (Garbled, slightly confused ) Nutritional Appearance: overweight Orientation/consciousness: oriented to person HENMT: Head: normal to inspection Resp: Effort & Inspection: no respiratory distress Auscultation: no rhonchi and no wheezes Card
[2021-07-28] MEDS: cloNIDine HCL 0.1 MG TABLET PO ×2 (13:44→16:55)
--- NOTE | 2021-07-28 16:46 | PC.NURSE ---
This patient, Vladimir Montes Jr., was transferred to [[facility] ] on 07/28/21 at [facility]. Personal belongings sent with patient. Report given to [Kristina]. Appropriate documentation sent with patient.
[2021-07-28] MEDS: amLODIPine BESYLATE 5 MG TABLET 10 MG PO (19:51)
[2021-07-29] VITALS (15 sets, daily range): BP systolic 158–190; BP diastolic 83–110; PULSE 58–83; RESP 16–18; TEMP 35.6–36.6; O2SAT 99–100
[2021-07-29 05:47] LABS: Alanine Aminotransferase 11 U/L (4-50); Albumin Level 2.9 g/dL (3.5-5.1); Alkaline Phosphatase 94 U/L (38-126); Anion Gap 6 mmol/L (8-16); Aspartate Amino Transferase 24 U/L (17-59); Bilirubin,Total 0.2 mg/dL (0.2-1.3); Blood Urea Nitrogen 34 mg/dL (9-20); Calcium 8.6 mg/dL (8.4-10.2); Carbon Dioxide 24 mmol/L (22-30); Chloride 108 mmol/L (98-107); Estimated CRCL calculation 36 ml/min; Estimated Glomerular Filt Rate 29; Glucose 99 mg/dL (65-110); Magnesium 2.1 mg/dL (1.6-2.3); Phosphorus 3.6 mg/dL (2.5-4.5); Potassium 3.5 mmol/L (3.4-5.0); Sodium 138 mmol/L (137-145)
[2021-07-29 06:17] LABS: Hematocrit 32.1 % (42.0-52.0); Hemoglobin 10.2 g/dL (14.0-18.0); Mean Corpuscular HGB Conc 31.8 g/dl (32-36); Mean Corpuscular Hemoglobin 30.4 pg (26-34); Mean Corpuscular Volume 95.5 fl (80-100); Mean Platelet Volume 12.8 fl (7.4-10.4); Platelet Count Result 200 k/mm3 (150-375); Red Blood Count 3.36 M/mm3 (4.6-6.20); Red Cell Distribution Width 12.3 % (11.5-14.5); White Blood Count 5.2 K/mm3 (4.5-10.0)
[2021-07-29] MEDS: cloNIDine HCL 0.1 MG TABLET PO ×2 (08:57→20:19)
[2021-07-29] MEDS: allopurinoL 300 MG TABLET PO (08:58)
[2021-07-29] MEDS: carvediloL 25 MG TABLET PO ×2 (08:58→17:42)
[2021-07-29] MEDS: CLOPIDOGREL BISULFATE 75 MG TABLET PO (08:58)
[2021-07-29] MEDS: ROSUVASTATIN 10 MG TABLET PO (08:58)
[2021-07-29] MEDS: FUROSEMIDE 40 MG TABLET PO ×2 (08:58→17:42)
[2021-07-29] MEDS: ASPIRIN 81 MG ENTERIC TABLET PO (08:58)
[2021-07-29] MEDS: LOSARTAN POTASSIUM 100 MG TABLET PO (08:59)
--- NOTE | 2021-07-29 09:01 | PM.PNNEP ---
Progress Note: A&P Additional Plan Impression: 1. This patient has chronic kidney disease. His baseline creatinine is around 3. This is due to hypertension and vascular disease. His creatinine has returned to its baseline. his creatinine is a little lower than his usual baseline, probably due to bedrest. 2. The patient had a stroke. He has aphasia. He is getting speech therapy. 3. The patient has hypertension. He is on carvedilol 25 b.i.d., clonidine 0.1 t.i.d., Nifedipine 30 daily, and furosemide. blood pressure looks pretty good right now. Generally in the 150s in the 160s. Will reduce clonidine again to b.i.d.. Eventually will stop this. If he needs more blood pressure medicine we can increase the nifedipine. This will help reduce swings in blood pressure. 4. The patient has anemia. This is only mild. No need for Epogen. 5. The patient has CKD MBD. Phosphorus level is good. 6. The patient has hyperlipidemia. He is on rosuvastatin for this. Subjective Date/time seen: 07/29/21 09:01 Interval history: the patient is feeling better today. he still has significant word searching. Exam Narrative: WDWN in NAD skin no rash head ncat lungs clear to auscultation cor reg no rub or gallop abd BS+ nontender and soft ext no edema. Objective Data Vital Signs Vital Signs: Vital Signs - 24 hr 07/28/21 09:06 07/28/21 10:00 07/28/21 12:00 Temperature 36.5 C Pulse Rate 80 61 61 Respiratory Rate 18 Blood Pressure 138/98 H Pulse Oximetry 100 07/28/21 14:00 07/28/21 16:00 07/28/21 16:53 Temperature 36.6 C Pulse Rate 65 60 64 Respiratory Rate 20 Blood Pressure 157/98 H Pulse Oximetry 100 07/28/21 21:14 07/29/21 00:00 07/29/21 04:00 Temperature 36.1 C L Pulse Rate 82 58 L 61 Respiratory Rate 20 Blood Pressure 123/66 Pulse Oximetry 100 07/29/21 06:17 07/29/21 08:58 Temperature 36.4 C Pulse Rate 67 74 Respiratory Rate 18 Blood Pressure 160/83 H Pulse Oximetry 99 Intake/Output Intake/Output: Intake & Output 09/08/0707/27/21 07/28/21 07/29/21 23:59 23:59 23:59 23:59 Intake Total 940 19990 250 Output Total 2574 1450 2600 3000 Balance -1635 563 -784 -6162 Meds/Results Medications: Active Medications Generic Name Dose Route Start Last Admin Trade Name Freq PRN Reason Stop Dose Admin Allopurinol 300 mg 07/28/21 09:00 07/29/21 08:58 Allopurinol 300 Mg Tablet PO 300 mg DAILY KAITLIN Administration Amlodipine Besylate 10 mg 07/27/21 21:00 07/28/21 19:51 Amlodipine Besylate 5 Mg Tablet PO 10 mg HS KAITLIN Administration Aspirin 81 mg 07/26/21 09:00 07/29/21 08:58 Aspirin 81 Mg Enteric Tablet PO 81 mg QAM KAITLIN Administration Carvedilol 25 mg 07/26/21 08:00 07/29/21 08:58 Carvedilol 25 Mg Tablet PO 25 mg BIDWM KAITLIN Administration Clonidine HCl 0.1 mg 07/28/21 13:00 07/29/21 08:57 Clonidine Hcl 0.1 Mg Tablet PO 0.1 mg TID KAITLIN Administration Clopidogrel Bisulfate 75 mg 07/26/21 09:00 07/29/21 08:58 Clopidogrel Bisulfate 75 Mg Tablet PO 75 mg QAM KAITLIN Administration Furosemide 40 mg 07/27/21 09:00 07/29/21 08:58 Furosemide 40 Mg Tablet PO 40 mg BID KAITLIN Administration Hydralazine HCl 20 mg 07/27/21 07:30 Hydralazine Hcl 20 Mg/Ml Vial IV PUSH Q4H PRN SBP > 160 - Second Choice Labetalol HCl 20 mg 07/27/21 07:29 07/27/21 22:40 Labetalol Hcl Inj 100 Mg/20 Ml Vial IV PUSH 20 mg Q4H PRN Administration SBP > 160 Losartan Potassium 100 mg 07/26/21 09:00 07/29/21 08:59 Losartan Potassium 100 Mg Tablet PO 100 mg DAILY KAITLIN Administration Rosuvastatin Calcium 10 mg 07/26/21 09:00 07/29/21 08:58 Rosuvastatin 10 Mg Tablet PO 10 mg DAILY KAITLIN Administration Radiology Results: ITS Impressions Chest X-Ray 07/25/21 22:00 IMPRESSION: 1: NO ACUTE CARDIOPULMONARY DISEASE. Head CT 07/25/21 22:22
--- NOTE | 2021-07-29 10:45 | PC.NURSE ---
Caroline Hanna, pt's aunt, called this morning to let me know that she spoke with pt and he stated he wanted something but was unable to tell her what it was; she was very concerned his needs were not being met. She asked if I would interrogate pt until he is able to tell me what he wants. I explained to Caroline that pt was in good spirits, he was communicating and although he is having difficulty finding some words to express himself, he was in fact communicating and doing quite well with communication especially considering his recent health incidents. I continued that I had been in pt's room no less than 5 times since 0700 and each time I had asked him if there was anything I could get him or do for him and he cheerfully said no, I'm good. I also clarified that PT and OT had also been in with pt and worked with him this AM and they too think that pt is doing remarkably well under the circumstances and have attempted to make sure his needs are being met as well. I will continue to monitor pt. Caroline also informed me that pt should not be discharged to his home as it was a real mess and that it has a lot of stairs ; and, she does not believe pt can or has been caring for himself appropriately. Caroline stated that a niece is allegedly willing to take pt in and help with home care but at the very least he should go to a rehab facility and not his home.
--- NOTE | 2021-07-29 16:01 | PM.IMPN ---
Progress Note: A&P Assessment and Plan (1) Non-compliance: Code(s): Z91.19 - Patient's noncompliance with other medical treatment and regimen Status: Acute Assessment and Plan: Non compliance of HTN medications (2) Obstructive sleep apnea: Code(s): G47.33 - Obstructive sleep apnea (adult) (pediatric) Status: Chronic (3) Osteoarthritis of right knee: Qualifiers: Osteoarthritis type: primary Qualified Code(s): M17.11 - Unilateral primary osteoarthritis, right knee Code(s): M17.11 - Unilateral primary osteoarthritis, right knee Status: Chronic (4) Chronic kidney disease (CKD) stage G3a/A1, moderately decreased glomerular filtration rate (GFR) between 45-59 mL/min/1.73 square meter and albuminuria creatinine ratio less than 30 mg/g: Code(s): N18.3 - Chronic kidney disease, stage 3 (moderate) Status: Acute Assessment and Plan: Cr 3-->2.7 today Renal US shows medical disease Nephrology following, recommendations appreciated Avoid nephrotoxins Renally dose all meds Monitor (5) CKD (chronic kidney disease): Qualifiers: Chronic kidney disease stage: unspecified stage Qualified Code(s): N18.9 - Chronic kidney disease, unspecified Code(s): N18.9 - Chronic kidney disease, unspecified Status: Inactive (6) 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 and stage 1 chronic kidney disease: Code(s): I13.0 - Hypertensive heart and chronic kidney disease with heart failure and stage 1 through stage 4 chronic kidney disease, or unspecified chronic kidney disease; I50.41 - Acute combined systolic (congestive) and diastolic (congestive) heart failure; N18.1 - Chronic kidney disease, stage 1 Status: Acute Assessment and Plan: Echo pending (7) Stroke: Qualifiers: CVA mechanism: unspecified Qualified Code(s): I63.9 - Cerebral infarction, unspecified Code(s): I63.9 - Cerebral infarction, unspecified Status: Acute Assessment and Plan: MRI shows stroke -Moderate to large acute left frontoparietal lobe infarction. Echo pending Carotid Doppler less than 50% BL Continue asa, bp control, statin PT/OT/ST Subjective Date/time seen: 07/29/21 16:01 Interval history: 07/28 61yo male with CKD, COLETTE and HTN here for acute CVA and hypertensive emergency. Bp is better pt can transfer to her medical floor today, pt appears garbled, slurred speech and slightly confused continue to monitor in the hospital. Pt has had a stroke. 07/29 pt seen and examined; no acute events overnight; continues with aphasia Review of Systems Review of Systems: All systems reviewed & are unremarkable except as noted in HPI and below Exam Const: General: other (Garbled, slightly confused ) Nutritional Appearance: overweight Orientation/consciousness: oriented to person HENMT: Head: normal to inspection Resp: Effort & Inspection: no respiratory distress Auscultation: no rhonchi and no wheezes Cardio: Rate: regular rate Rhythm: regular rhythm GI: Inspection: normal to inspection Auscultation: normal bowel sounds Neuro: General: oriented to person Objective Data Vital Signs Vital Signs: Vital Signs - 24 hr 07/28/21 16:53 07/28/21 21:14 07/29/21 00:00 Temperature 36.1 C L Pulse Rate 64 82 58 L Respiratory Rate 20 Blood Pressure 123/66 Pulse Oximetry 100 07/29/21 04:00 07/29/21 06:17 07/29/21 08:00 Temperature 36.4 C Pulse Rate 61 67 69 Respiratory Rate 18 Blood Pressure 160/83 H Pulse Oximetry 99 07/29/21 08:58 07/29/21 12:00 07/29/21 14:00 Temperature 35.6 C L Pulse Rate 74 76 66 Respiratory Rate 18 Blood Pressure 158/110 H Pulse Oximetry 100 Intake/Output Intake/Output: Intake & Output 07/26/21 07/27/21 07/28/21 07/29/21 23:59 23:59 23:59 23:59 Intake Total 940 1999 Output Total 5655 145
[2021-07-29] MEDS: LABETALOL HCL INJ 100 MG/20 ML VIAL 20 MG IV PUSH ×2 (17:45→23:47)
--- NOTE | 2021-07-29 17:51 | PC.NURSE ---
pt BP high at 1400 vitals check; pt BP has been rising throughout the day; checked pt's vitals again at 1745 at which time BP was 179/100; per gay VANCE admin; will continue to monitor; vitals changed from Q8HR to Q4HR
[2021-07-29] MEDS: hydrALAZINE HCL 20 MG/ML VIAL IV PUSH (19:05)
--- NOTE | 2021-07-29 19:06 | PC.NURSE ---
per hospitalist, Lorena Desai,all BPs should be manual and Q4HR
[2021-07-29] MEDS: amLODIPine BESYLATE 5 MG TABLET 10 MG PO (20:18)
[2021-07-30] VITALS (15 sets, daily range): BP systolic 135–180; BP diastolic 86–105; PULSE 69–89; RESP 16–20; TEMP 36.1–36.9; O2SAT 100
[2021-07-30] MEDS: LABETALOL HCL INJ 100 MG/20 ML VIAL 20 MG IV PUSH ×2 (05:18→11:00)
[2021-07-30 05:56] LABS: Hematocrit 34.8 % (42.0-52.0); Mean Corpuscular HGB Conc 31.6 g/dl (32-36); Mean Corpuscular Hemoglobin 29.6 pg (26-34); Mean Corpuscular Volume 93.5 fl (80-100); Platelet Count Result 239 k/mm3 (150-375); Red Blood Count 3.72 M/mm3 (4.6-6.20); Red Cell Distribution Width 12.2 % (11.5-14.5); White Blood Count 5.7 K/mm3 (4.5-10.0)
[2021-07-30 06:05] LABS: Alanine Aminotransferase 13 U/L (4-50); Albumin Level 3.1 g/dL (3.5-5.1); Alkaline Phosphatase 102 U/L (38-126); Anion Gap 9 mmol/L (8-16); Aspartate Amino Transferase 25 U/L (17-59); Bilirubin,Total 0.3 mg/dL (0.2-1.3); Blood Urea Nitrogen 28 mg/dL (9-20); Calcium 9.1 mg/dL (8.4-10.2); Carbon Dioxide 23 mmol/L (22-30); Chloride 106 mmol/L (98-107); Estimated CRCL calculation 38 ml/min; Estimated Glomerular Filt Rate 31; Glucose 103 mg/dL (65-110); Phosphorus 3.7 mg/dL (2.5-4.5); Potassium 3.6 mmol/L (3.4-5.0); Sodium 138 mmol/L (137-145)
[2021-07-30] MEDS: allopurinoL 300 MG TABLET PO (08:57)
[2021-07-30] MEDS: ASPIRIN 81 MG ENTERIC TABLET PO (08:57)
[2021-07-30] MEDS: LOSARTAN POTASSIUM 100 MG TABLET PO (08:57)
[2021-07-30] MEDS: CLOPIDOGREL BISULFATE 75 MG TABLET PO (08:57)
[2021-07-30] MEDS: FUROSEMIDE 40 MG TABLET PO ×2 (08:57→16:05)
[2021-07-30] MEDS: ROSUVASTATIN 10 MG TABLET PO (08:57)
[2021-07-30] MEDS: carvediloL 25 MG TABLET 50 MG PO ×2 (08:58→21:08)
[2021-07-30] MEDS: cloNIDine HCL 0.1 MG TABLET PO ×2 (09:00→21:09)
--- NOTE | 2021-07-30 09:45 | PM.IMPN ---
Progress Note: A&P Assessment and Plan (1) Non-compliance: Code(s): Z91.19 - Patient's noncompliance with other medical treatment and regimen Status: Acute Assessment and Plan: Non compliance of HTN medications (2) Obstructive sleep apnea: Code(s): G47.33 - Obstructive sleep apnea (adult) (pediatric) Status: Chronic (3) Osteoarthritis of right knee: Qualifiers: Osteoarthritis type: primary Qualified Code(s): M17.11 - Unilateral primary osteoarthritis, right knee Code(s): M17.11 - Unilateral primary osteoarthritis, right knee Status: Chronic (4) Chronic kidney disease (CKD) stage G3a/A1, moderately decreased glomerular filtration rate (GFR) between 45-59 mL/min/1.73 square meter and albuminuria creatinine ratio less than 30 mg/g: Code(s): N18.3 - Chronic kidney disease, stage 3 (moderate) Status: Acute Assessment and Plan: Cr 3-->2.7 today Renal US shows medical disease Nephrology following, recommendations appreciated Avoid nephrotoxins Renally dose all meds Monitor (5) CKD (chronic kidney disease): Qualifiers: Chronic kidney disease stage: unspecified stage Qualified Code(s): N18.9 - Chronic kidney disease, unspecified Code(s): N18.9 - Chronic kidney disease, unspecified Status: Inactive (6) 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 and stage 1 chronic kidney disease: Code(s): I13.0 - Hypertensive heart and chronic kidney disease with heart failure and stage 1 through stage 4 chronic kidney disease, or unspecified chronic kidney disease; I50.41 - Acute combined systolic (congestive) and diastolic (congestive) heart failure; N18.1 - Chronic kidney disease, stage 1 Status: Acute Assessment and Plan: Echo pending (7) Stroke: Qualifiers: CVA mechanism: unspecified Qualified Code(s): I63.9 - Cerebral infarction, unspecified Code(s): I63.9 - Cerebral infarction, unspecified Status: Acute Assessment and Plan: MRI shows stroke -Moderate to large acute left frontoparietal lobe infarction. Echo pending Carotid Doppler less than 50% BL Continue asa, bp control, statin increased carvedilol 50 BID PT/OT/ST Would benefit from rehab at d/c Subjective Date/time seen: 07/30/21 09:45 Interval history: 07/28 61yo male with CKD, COLETTE and HTN here for acute CVA and hypertensive emergency. Bp is better pt can transfer to her medical floor today, pt appears garbled, slurred speech and slightly confused continue to monitor in the hospital. Pt has had a stroke. 07/29 pt seen and examined; no acute events overnight; continues with aphasia 07/30 pt seen and examined; BP elevated; able to say yes and no; still has some expressive aphasia when communicating Review of Systems Review of Systems: All systems reviewed & are unremarkable except as noted in HPI and below Exam Const: General: other (Garbled speech ) Nutritional Appearance: overweight Orientation/consciousness: oriented to person HENMT: Head: normal to inspection Resp: Effort & Inspection: no respiratory distress Auscultation: no rhonchi and no wheezes Cardio: Rate: regular rate Rhythm: regular rhythm GI: Inspection: normal to inspection Auscultation: normal bowel sounds Neuro: General: patient oriented x3 Objective Data Vital Signs Vital Signs: Vital Signs - 24 hr 07/29/21 12:00 07/29/21 14:00 07/29/21 16:00 Temperature 35.6 C L Pulse Rate 76 66 65 Respiratory Rate 18 Blood Pressure 158/110 H Pulse Oximetry 100 07/29/21 17:42 07/29/21 17:45 07/29/21 17:46 Temperature Pulse Rate 67 68 68 Respiratory Rate Blood Pressure 179/100 H Pulse Oximetry 07/29/21 19:54 07/29/21 20:00 07/29/21 20:06 Temperature 36.4 C Pulse Rate 77 77 Respiratory Rate 16 16 Blood Pressure 159/95 H 162/94 H Pulse Oximetry 100 100
--- NOTE | 2021-07-30 09:47 | WPDNEURCNPN ---
Assessment and Plan Additional Plan documented abnormal MRI with large acute left frontoparietal lobe infarction and with clinical speech difficulties and negative Doppler studies of the carotid will obtain the echocardiogram and not perform the CTA at this particular time because the elevated creatinine if necessary we can get the MRA Consult date: 07/30/21 Time Seen: 09:30 HPI: Vladimir Montes Jr. is a 61 year old male admitted to the hospital for the complaints of change in the mental status reportedly he was noted to be confused in the driving in his car and pressing his break continuously a neighbor went to see what was going on and when attempted to talk to the patient he responded with answer that made no sense and hands she called the EMS and brought him for further evaluation upon arrival in the emergency room his vital signs were stable except the blood pressure being 260/148 he was started on nicardipine drip a but he remained confused though he was able to move all upper and lower extremities he gave only few answer to the questioning and was noted to be having some difficulties in finding the right words, patient does have ongoing history of taking multiple medication particularly for the hypertension which include amlodipine carvedilol clonidine furosemide losartan and rosuvastatin. He is not a smoker nor drinker and does not take any substance, evaluation up until now includes the MRI of the brain which documented moderate to large side acute left frontoparietal lobe infarction in addition to the old right cerebellar infarction and mild microangiopathy Doppler study of the carotid is with less than 50% stenosis bilaterally, renal ultrasound documented increased parenchymal echogenicity raising the possibility of medical renal disease and chest x-ray is negative, routine blood studies documented hemoglobin most recently 11.0 though when he came it was 6.3 MCV 93.5 platelet count 239 protime 12.8 with INR of 1.0 chemistry with BUN of 28 initially it was 42 and creatinine of 2.60 UA with 3+ protein 2+ blood, toxicology negative and serologies has been negative prior to this particular admission Review of Systems Review of Systems: All systems reviewed & are unremarkable except as noted in HPI and below FOR[facility]LY [facility] Past Medical History Medical History 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 Chronic kidney disease (CKD) stage G3a/A1, moderately decreased glomerular filtration rate (GFR) between 45-59 mL/min/1.73 square meter and albuminuria creatinine ratio less than 30 mg/g Hypertension 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 and stage 1 chronic kidney disease Obesity Obstructive sleep apnea Osteoarthritis of right knee Family History Family History Father Cerebrovascular accident Father Cerebrovascular accident Mother Cerebrovascular accident Sibling Acute myocardial infarction Social History Social History Smoking status: Never smoker Second hand tobacco smoke exposure: No Alcohol intake: never Substance use: never Gender identity (if verbalized by the patient): Male Spiritual care concerns: No Meds Home Medications and Allergies Home Medications Medication Instructions Recorded Confirmed Type aspirin 81 mg tablet,delayed 81 mg PO DAILY 11/20/19 07/26/21 History release allopurinol 300 mg PO DAILY 07/26/21 07/26/21 History amlodipine 10 mg PO DAILY 07/26/21 07/26/21 History carvedilol 25 mg PO BID 07/26/21 07/26/21 History clonidine HCl 0.1 mg PO TID 07/26/21 07/26/21 History furosemide 40 mg PO BID 07/26/21 07/26/21 History losartan 100 mg PO DAILY 07/26/21 07/26/21 History rosuvastatin 10 mg PO DAILY 07/26/21 07/26/21 Hist
--- NOTE | 2021-07-30 16:20 | PM.PNNEP ---
Progress Note: A&P Assessment and Plan (1) Chronic kidney disease, stage IV (severe): Code(s): N18.4 - Chronic kidney disease, stage 4 (severe) Status: Chronic Assessment and Plan: baseline creatinine ~ 2.6 - 3.0mg/dl due to hypertension and vascular disease as well as leftovers from previous TIFFANY/ARF continues supportive therapy (2) Stroke: Qualifiers: CVA mechanism: unspecified Qualified Code(s): I63.9 - Cerebral infarction, unspecified Code(s): I63.9 - Cerebral infarction, unspecified Status: Acute Assessment and Plan: as noted by admission imaging Neurology following expressive aphasia noted but seems to be improving continue supportive care (3) Hypertension: Qualifiers: Hypertension type: unspecified Qualified Code(s): I10 - Essential (primary) hypertension Code(s): I10 - Essential (primary) hypertension Status: Acute Assessment and Plan: poor control even at baseline/as an outpatient some concerns regarding compliance even prior to admission continue current medications given his compliance issues, wean off clonidine (so as to avoid rebound HTN) if needed, we can change his amlodipine to nifedipine XL (4) Anemia: Code(s): D64.9 - Anemia, unspecified Status: Chronic Assessment and Plan: probably related to his underlying CKD no need for WAN at this time follow trend of H/H Will continue to follow. Subjective Date/time seen: 07/30/21 16:20 Chart reviewed - assuming care from Dr. Laws; appears to be slowly improving with regard to mentation and speech; still has some expressive aphasia but better; BP still somewhat erratic at this time; no apparent distress voiced; no issues overnight or earlier this AM. Exam Narrative: General: WD/WN male in NAD Heart: normal S1 and S2; no rub Lungs: clear to auscultation Abdomen: soft, nontender, nondistended, positive bowel sounds Extremities: no cyanosis or clubbing; no edema Skin: warm and dry Objective Data Vital Signs Vital Signs: Vital Signs Temp Pulse Resp BP Pulse Ox 07/30/21 16:00 36.4 C 78 16 135/86 100 07/30/21 12:00 36.3 C L 80 16 135/88 100 07/30/21 11:00 80 07/30/21 10:25 174/105 H 07/30/21 08:58 88 07/30/21 08:50 169/98 H 07/30/21 08:00 36.4 C 88 16 180/93 H 100 07/30/21 07:00 180/90 H 07/30/21 05:18 70 07/30/21 04:00 36.9 C 82 16 164/100 H 100 07/30/21 01:05 168/98 H 07/30/21 00:00 71 07/29/21 23:33 36.6 C 83 17 190/100 H 100 07/29/21 20:06 162/94 H 07/29/21 20:00 77 16 100 07/29/21 19:54 36.4 C 77 16 159/95 H 100 Intake/Output Intake/Output: Intake & Output 07/27/21 07/28/21 07/29/21 07/30/21 23:59 23:59 23:59 23:59 Intake Total 19990 1480 1180 Output Total 1450 2600 3550 1600 Balance 885 -842 -5263 -041 Meds/Results Medications: Active Medications Generic Name Dose Route Start Last Admin Trade Name Anabela PRN Reason Stop Dose Admin Allopurinol 300 mg 07/28/21 09:00 07/30/21 08:57 Allopurinol 300 Mg Tablet PO 300 mg DAILY KAITLIN Administration Amlodipine Besylate 10 mg 07/27/21 21:00 07/29/21 20:18 Amlodipine Besylate 5 Mg Tablet PO 10 mg HS KAITLIN Administration Aspirin 81 mg 07/26/21 09:00 07/30/21 08:57 Aspirin 81 Mg Enteric Tablet PO 81 mg QAM KAITLIN Administration Carvedilol 50 mg 07/30/21 09:00 07/30/21 08:58 Carvedilol 25 Mg Tablet PO 50 mg Q12HR KAITLIN Administration Clonidine HCl 0.1 mg 07/29/21 21:00 07/30/21 09:00 Clonidine Hcl 0.1 Mg Tablet PO 07/31/21 09:01 0.1 mg Q12HR KAITLIN Administration Clopidogrel Bisulfate 75 mg 07/26/21 09:00 07/30/21 08:57 Clopidogrel Bisulfate 75 Mg Tablet PO 75 mg QAM KAITLIN Administration Furosemide 40 mg 07/27/21 09:00 07/30/21 16:05 Furosemide 40 Mg Tablet PO 40 mg BID KAITLIN Administrati
--- NOTE | 2021-07-30 16:20 | P.PNNP_ITS ---
Progress Note: A&P Assessment and Plan (1) Chronic kidney disease, stage IV (severe): Code(s): N18.4 - Chronic kidney disease, stage 4 (severe) Status: Chronic Assessment and Plan: * baseline creatinine ~ 2.6 - 3.0mg/dl * due to hypertension and vascular disease as well as leftovers from previous TIFFANY/ARF * continues supportive therapy (2) Stroke: Qualifiers: CVA mechanism: unspecified Qualified Code(s): I63.9 - Cerebral infarction, unspecified Code(s): I63.9 - Cerebral infarction, unspecified Status: Acute Assessment and Plan: * as noted by admission imaging * Neurology following * expressive aphasia noted but seems to be improving * continue supportive care (3) Hypertension: Qualifiers: Hypertension type: unspecified Qualified Code(s): I10 - Essential (primary) hypertension Code(s): I10 - Essential (primary) hypertension Status: Acute Assessment and Plan: * poor control even at baseline/as an outpatient * some concerns regarding compliance even prior to admission * continue current medications * given his compliance issues, wean off clonidine (so as to avoid rebound HTN) * if needed, we can change his amlodipine to nifedipine XL (4) Anemia: Code(s): D64.9 - Anemia, unspecified Status: Chronic Assessment and Plan: * probably related to his underlying CKD * no need for WAN at this time * follow trend of H/H Will continue to follow. Subjective Date/time seen: 07/30/21 16:20 Chart reviewed - assuming care from Dr. Laws; appears to be slowly improving with regard to mentation and speech; still has some expressive aphasia but better; BP still somewhat erratic at this time; no apparent distress voiced; no issues overnight or earlier this AM. Exam Narrative: General: WD/WN male in NAD Heart: normal S1 and S2; no rub Lungs: clear to auscultation Abdomen: soft, nontender, nondistended, positive bowel sounds Extremities: no cyanosis or clubbing; no edema Skin: warm and dry Objective Data Vital Signs Vital Signs: Vital Signs Temp Pulse Resp BP Pulse Ox 07/30/21 16:00 36.4 C 78 16 135/86 100 07/30/21 12:00 36.3 C L 80 16 135/88 100 07/30/21 11:00 80 07/30/21 10:25 174/105 H 07/30/21 08:58 88 07/30/21 08:50 169/98 H 07/30/21 08:00 36.4 C 88 16 180/93 H 100 07/30/21 07:00 180/90 H 07/30/21 05:18 70 07/30/21 04:00 36.9 C 82 16 164/100 H 100 07/30/21 01:05 168/98 H 07/30/21 00:00 71 07/29/21 23:33 36.6 C 83 17 190/100 H 100 07/29/21 20:06 162/94 H 07/29/21 20:00 77 16 100 07/29/21 19:54 36.4 C 77 16 159/95 H 100 Intake/Output Intake/Output: Intake & Output 07/27/21 07/28/21 07/29/21 07/30/21 23:59 23:59 23:59 23:59 Intake Total 19990 1480 1180 Output Total 1450 2600 3550 1600 Balance [phone] -[phone] -[phone] -610 Meds/Results Medications: Active Medications Generic Name Dose Route Start Last Admin Trade Name Abelq PRN Reason Stop Dose Admin Allopurinol 300 mg 07/28/21 09:00 07/30/21 08:57 Allopurinol 300 Mg Tablet PO 300 mg DAILY [facility] Administ
[2021-07-30] MEDS: amLODIPine BESYLATE 5 MG TABLET 10 MG PO (21:09)
[2021-07-31] VITALS (12 sets, daily range): BP systolic 119–198; BP diastolic 71–97; PULSE 66–90; RESP 16–20; TEMP 35.5–36.3; O2SAT 98–100
[2021-07-31 06:02] LABS: Hematocrit 32.4 % (42.0-52.0); Hemoglobin 10.1 g/dL (14.0-18.0); Mean Corpuscular HGB Conc 31.2 g/dl (32-36); Mean Corpuscular Hemoglobin 29.2 pg (26-34); Mean Corpuscular Volume 93.6 fl (80-100); Mean Platelet Volume 12.5 fl (7.4-10.4); Platelet Count Result 226 k/mm3 (150-375); Red Blood Count 3.46 M/mm3 (4.6-6.20); Red Cell Distribution Width 12.3 % (11.5-14.5); White Blood Count 5.3 K/mm3 (4.5-10.0)
[2021-07-31 06:29] LABS: Alanine Aminotransferase 11 U/L (4-50); Albumin Level 2.9 g/dL (3.5-5.1); Alkaline Phosphatase 98 U/L (38-126); Anion Gap 8 mmol/L (8-16); Aspartate Amino Transferase 24 U/L (17-59); Bilirubin,Total 0.4 mg/dL (0.2-1.3); Blood Urea Nitrogen 31 mg/dL (9-20); Calcium 8.7 mg/dL (8.4-10.2); Carbon Dioxide 23 mmol/L (22-30); Chloride 106 mmol/L (98-107); Estimated CRCL calculation 38 ml/min; Estimated Glomerular Filt Rate 31; Glucose 92 mg/dL (65-110); Magnesium 1.9 mg/dL (1.6-2.3); Phosphorus 3.4 mg/dL (2.5-4.5); Potassium 3.4 mmol/L (3.4-5.0); Sodium 137 mmol/L (137-145)
[2021-07-31] MEDS: FUROSEMIDE 40 MG TABLET PO ×2 (08:21→16:03)
[2021-07-31] MEDS: ASPIRIN 81 MG ENTERIC TABLET PO (08:21)
[2021-07-31] MEDS: cloNIDine HCL 0.1 MG TABLET PO (08:22)
[2021-07-31] MEDS: carvediloL 25 MG TABLET 50 MG PO ×2 (08:22→21:27)
[2021-07-31] MEDS: LOSARTAN POTASSIUM 100 MG TABLET PO (08:22)
[2021-07-31] MEDS: CLOPIDOGREL BISULFATE 75 MG TABLET PO (08:22)
[2021-07-31] MEDS: allopurinoL 300 MG TABLET PO (08:22)
[2021-07-31] MEDS: ROSUVASTATIN 10 MG TABLET PO (08:22)
--- NOTE | 2021-07-31 09:52 | PM.PNNEP ---
Progress Note: A&P Assessment and Plan (1) Chronic kidney disease, stage IV (severe): Code(s): N18.4 - Chronic kidney disease, stage 4 (severe) Status: Chronic Assessment and Plan: baseline creatinine ~ 2.6 - 3.0mg/dl due to hypertension and vascular disease as well as leftovers from previous TIFFANY/ARF continue supportive therapy (2) Stroke: Qualifiers: CVA mechanism: unspecified Qualified Code(s): I63.9 - Cerebral infarction, unspecified Code(s): I63.9 - Cerebral infarction, unspecified Status: Acute Assessment and Plan: as noted by admission imaging Neurology following clinical improvement in aphasia continue supportive care (3) Hypertension: Qualifiers: Hypertension type: unspecified Qualified Code(s): I10 - Essential (primary) hypertension Code(s): I10 - Essential (primary) hypertension Status: Acute Assessment and Plan: poor control even at baseline/as an outpatient some concerns regarding compliance even prior to admission continue current medications given his compliance issues, attempting to wean off clonidine (so as to avoid rebound HTN) if needed, we can change his amlodipine to nifedipine XL (4) Anemia: Code(s): D64.9 - Anemia, unspecified Status: Chronic Assessment and Plan: probably related to his underlying CKD no need for WAN at this time follow trend of H/H Will continue to follow. Subjective Date/time seen: 07/31/21 09:52 Continues to make slow and steady progress/improvement; no issues/events overnight or earlier this AM; working with PT/OT/ST as tolerated; no apparent distress and no other acute complaints voiced at thsi time. Exam Narrative: General: WD/WN male in NAD Heart: normal S1 and S2; no rub Lungs: clear to auscultation Abdomen: soft, nontender, nondistended, positive bowel sounds Extremities: no cyanosis or clubbing; no edema Skin: warm and intact Objective Data Vital Signs Vital Signs: Vital Signs Temp Pulse Resp BP Pulse Ox 07/31/21 08:22 80 07/31/21 04:00 36.2 C L 76 20 147/82 H 98 07/31/21 00:00 36.1 C L 72 20 119/71 100 07/30/21 21:58 149/88 H 07/30/21 21:08 80 07/30/21 20:00 36.1 C L 73 20 180/98 H 100 07/30/21 16:00 36.4 C 78 16 135/86 100 07/30/21 12:00 36.3 C L 80 16 135/88 100 07/30/21 11:00 80 Intake/Output Intake/Output: Intake & Output 07/28/21 07/29/21 07/30/21 07/31/21 23:59 23:59 23:59 23:59 Intake Total 2050 1480 1680 290 Output Total 2600 3550 1850 900 Balance -550 -2070 -170 -610 Meds/Results Medications: Active Medications Generic Name Dose Route Start Last Admin Trade Name Freq PRN Reason Stop Dose Admin Allopurinol 300 mg 07/28/21 09:00 07/31/21 08:22 Allopurinol 300 Mg Tablet PO 300 mg DAILY KAITLIN Administration Amlodipine Besylate 10 mg 07/27/21 21:00 07/30/21 21:09 Amlodipine Besylate 5 Mg Tablet PO 10 mg HS KAITLIN Administration Aspirin 81 mg 07/26/21 09:00 07/31/21 08:21 Aspirin 81 Mg Enteric Tablet PO 81 mg QAM KAITLIN Administration Carvedilol 50 mg 07/30/21 09:00 07/31/21 08:22 Carvedilol 25 Mg Tablet PO 50 mg Q12HR KAITLIN Administration Clopidogrel Bisulfate 75 mg 07/26/21 09:00 07/31/21 08:22 Clopidogrel Bisulfate 75 Mg Tablet PO 75 mg QAM KAITLIN Administration Furosemide 40 mg 07/27/21 09:00 07/31/21 08:21 Furosemide 40 Mg Tablet PO 40 mg BID KAITLIN Administration Hydralazine HCl 20 mg 07/27/21 07:30 07/29/21 19:05 Hydralazine Hcl 20 Mg/Ml Vial IV PUSH 20 mg Q4H PRN Administration SBP > 160 - Second Choice Labetalol HCl 20 mg 07/27/21 07:29 07/30/21 11:00 Labetalol Hcl Inj 100 Mg/20 Ml Vial IV PUSH 20 mg Q4H PRN Administration SBP > 160 Losartan Potassium 100 mg 07/26/21 09:00 07/31/21 08:22 Losartan Potassium 100 Mg Tablet PO 100 mg DAILY S
--- NOTE | 2021-07-31 14:26 | PM.IMPN ---
Progress Note: A&P Assessment and Plan (1) Non-compliance: Code(s): Z91.19 - Patient's noncompliance with other medical treatment and regimen Status: Acute Assessment and Plan: Non compliance of HTN medications (2) Obstructive sleep apnea: Code(s): G47.33 - Obstructive sleep apnea (adult) (pediatric) Status: Chronic (3) Osteoarthritis of right knee: Qualifiers: Osteoarthritis type: primary Qualified Code(s): M17.11 - Unilateral primary osteoarthritis, right knee Code(s): M17.11 - Unilateral primary osteoarthritis, right knee Status: Chronic (4) Chronic kidney disease (CKD) stage G3a/A1, moderately decreased glomerular filtration rate (GFR) between 45-59 mL/min/1.73 square meter and albuminuria creatinine ratio less than 30 mg/g: Code(s): N18.3 - Chronic kidney disease, stage 3 (moderate) Status: Acute Assessment and Plan: Cr 3-->2.7 today Renal US shows medical disease Nephrology following, recommendations appreciated Avoid nephrotoxins Renally dose all meds Monitor (5) CKD (chronic kidney disease): Qualifiers: Chronic kidney disease stage: unspecified stage Qualified Code(s): N18.9 - Chronic kidney disease, unspecified Code(s): N18.9 - Chronic kidney disease, unspecified Status: Inactive (6) 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 and stage 1 chronic kidney disease: Code(s): I13.0 - Hypertensive heart and chronic kidney disease with heart failure and stage 1 through stage 4 chronic kidney disease, or unspecified chronic kidney disease; I50.41 - Acute combined systolic (congestive) and diastolic (congestive) heart failure; N18.1 - Chronic kidney disease, stage 1 Status: Acute Assessment and Plan: Echo pending (7) Stroke: Qualifiers: CVA mechanism: unspecified Qualified Code(s): I63.9 - Cerebral infarction, unspecified Code(s): I63.9 - Cerebral infarction, unspecified Status: Acute Assessment and Plan: MRI shows stroke -Moderate to large acute left frontoparietal lobe infarction. Echo pending Carotid Doppler less than 50% BL Continue asa, bp control, statin increased carvedilol 50 BID PT/OT/ST Would benefit from rehab at d/c Subjective Date/time seen: 07/31/21 14:26 Interval history: 07/28 61yo male with CKD, COLETTE and HTN here for acute CVA and hypertensive emergency. Bp is better pt can transfer to her medical floor today, pt appears garbled, slurred speech and slightly confused continue to monitor in the hospital. Pt has had a stroke. 07/29 pt seen and examined; no acute events overnight; continues with aphasia 07/30 pt seen and examined; BP elevated; able to say yes and no; still has some expressive aphasia when communicating 07/31 patient remains clinically stable has no new complaint unable to provide detailed review of symptom, seen by Neurology, echo is pending, patient working with PT OT and ST. Review of Systems Review of Systems: ROS unobtainable: Yes unobtainable due to medical condition Exam Narrative: Patient is comfortable, NAD HEENT: eyes are clear and none icteric LUNGS: normal respiratory effort ABD: distended Lower extremities: edema SKIN: nonjaundiced Neuro: grossly intact poor speech. Objective Data Vital Signs Vital Signs: Vital Signs - 24 hr 07/30/21 16:00 07/30/21 20:00 07/30/21 21:08 Temperature 97.6 F 96.9 F L Pulse Rate 78 73 80 Respiratory Rate 16 20 Blood Pressure 135/86 180/98 H Pulse Oximetry 100 100 07/30/21 21:58 07/31/21 00:00 07/31/21 04:00 Temperature 96.9 F L 97.2 F L Pulse Rate 72 76 Respiratory Rate 20 20 Blood Pressure 149/88 H 119/71 147/82 H Pulse Oximetry 100 98 07/31/21 08:00 07/31/21 08:22 07/31/21 09:02 Temperature 96.8 F L Pulse Rate 78 80 78 Respiratory Rate 16 Blood Pressure 155/95 H Pulse Oximetr
--- NOTE | 2021-07-31 16:18 | PCSTNOTE ---
The patient treatment was not able to be completed on [] due to []. Will plan to continue treatment per plan of care.
[2021-07-31] MEDS: amLODIPine BESYLATE 5 MG TABLET 10 MG PO (21:27)
[2021-08-01] VITALS (11 sets, daily range): BP systolic 150–172; BP diastolic 88–98; PULSE 68–97; RESP 16–20; TEMP 35.2–36.4; O2SAT 100
[2021-08-01] MEDS: ASPIRIN 81 MG ENTERIC TABLET PO (08:19)
[2021-08-01] MEDS: LOSARTAN POTASSIUM 100 MG TABLET PO (08:20)
[2021-08-01] MEDS: ROSUVASTATIN 10 MG TABLET PO (08:20)
[2021-08-01] MEDS: allopurinoL 300 MG TABLET PO (08:20)
[2021-08-01] MEDS: carvediloL 25 MG TABLET 50 MG PO ×2 (08:20→21:00)
[2021-08-01] MEDS: CLOPIDOGREL BISULFATE 75 MG TABLET PO (08:20)
[2021-08-01] MEDS: FUROSEMIDE 40 MG TABLET PO ×2 (08:20→16:04)
--- NOTE | 2021-08-01 09:46 | PCDIET ---
Weekly nutritional screen. Patient is tolerating current diet with adequate intake. No weight loss reported. No nutritional needs at this time.
[2021-08-01 10:36] LABS: Hematocrit 35.5 % (42.0-52.0); Hemoglobin 11.2 g/dL (14.0-18.0); Mean Corpuscular HGB Conc 31.5 g/dl (32-36); Mean Corpuscular Hemoglobin 30.2 pg (26-34); Mean Corpuscular Volume 95.7 fl (80-100); Mean Platelet Volume 11.8 fl (7.4-10.4); Platelet Count Result 266 k/mm3 (150-375); Red Blood Count 3.71 M/mm3 (4.6-6.20); Red Cell Distribution Width 12.4 % (11.5-14.5); White Blood Count 6.1 K/mm3 (4.5-10.0)
[2021-08-01 10:48] LABS: Albumin Level 3.4 g/dL (3.5-5.1); Anion Gap 8 mmol/L (8-16); Blood Urea Nitrogen 33 mg/dL (9-20); Calcium 9.1 mg/dL (8.4-10.2); Carbon Dioxide 23 mmol/L (22-30); Chloride 106 mmol/L (98-107); Estimated CRCL calculation 6 ml/min; Estimated Glomerular Filt Rate 27; Glucose 199 mg/dL (65-110); Magnesium 2.1 mg/dL (1.6-2.3); Phosphorus 2.8 mg/dL (2.5-4.5); Potassium 3.6 mmol/L (3.4-5.0); Sodium 137 mmol/L (137-145)
[2021-08-01] MEDS: LABETALOL HCL INJ 100 MG/20 ML VIAL 20 MG IV PUSH (16:04)
[2021-08-01] MEDS: polyethylene glycoL 3350 17 GM POWD.PACK PO (16:05)
--- NOTE | 2021-08-01 16:56 | P.PNNP_ITS ---
Progress Note: A&P Assessment and Plan (1) Chronic kidney disease, stage IV (severe): Code(s): N18.4 - Chronic kidney disease, stage 4 (severe) Status: Chronic Assessment and Plan: * baseline creatinine ~ 2.6 - 3.0mg/dl * due to hypertension and vascular disease as well as leftovers from previous TIFFANY/ARF * continue supportive therapy (2) Stroke: Qualifiers: CVA mechanism: unspecified Qualified Code(s): I63.9 - Cerebral infarction, unspecified Code(s): I63.9 - Cerebral infarction, unspecified Status: Acute Assessment and Plan: * as noted by admission imaging * Neurology following * clinical improvement in CVA symptoms * continue supportive care (3) Hypertension: Qualifiers: Hypertension type: unspecified Qualified Code(s): I10 - Essential (primary) hypertension Code(s): I10 - Essential (primary) hypertension Status: Acute Assessment and Plan: * poor control even at baseline/as an outpatient * some concerns regarding compliance even prior to admission * continue current medications * given his compliance issues, attempting to wean off clonidine (so as to avoid rebound HTN) * if needed, we can change his amlodipine to nifedipine XL (4) Anemia: Code(s): D64.9 - Anemia, unspecified Status: Chronic Assessment and Plan: * probably related to his underlying CKD * no need for WAN at this time * follow trend of H/H Will continue to follow. Subjective Date/time seen: 08/01/21 16:56 Speech continues to improve each day; no other acute issues or concerns voiced at this time; BP control remains a bit erratic still; no apparent distress noted; no events/problems overnight or earlier this AM. Exam Narrative: General: WD/WN male in NAD Heart: normal S1 and S2; no rub Lungs: clear to auscultation Abdomen: soft, nontender, nondistended, positive bowel sounds Extremities: no cyanosis or clubbing; no edema Skin: no rash or nodules Objective Data Vital Signs Vital Signs: Vital Signs Temp Pulse Resp BP Pulse Ox 08/01/21 16:04 76 08/01/21 16:00 76 154/88 H 08/01/21 12:45 35.2 C L 87 18 150/98 H 100 08/01/21 12:00 97 08/01/21 08:20 70 08/01/21 08:12 35.5 C L 86 16 167/95 H 100 08/01/21 08:00 89 08/01/21 04:00 36.2 C L 69 20 154/92 H 100 08/01/21 00:00 36.2 C L 72 20 153/90 H 100 07/31/21 22:32 143/91 H 07/31/21 21:27 78 07/31/21 20:00 36.1 C L 67 20 198/97 H 100 Intake/Output Intake/Output: Intake & Output 07/29/21 07/30/21 07/31/21 08/01/21 23:59 23:59 23:59 23:59 Intake Total 1480 1680 1510 1290 Output Total 3550 1850 1500 1950 Balance -7338 -967 10 -239 Meds/Results Medications: Active Medications Generic Name Dose Route Start Last Admin Trade Name Anabela PRN Reason Stop Dose Admin Allopurinol 300 mg 07/28/21 09:00 08/01/21 08:20 Allopurinol 300 Mg Tablet PO 300 mg DAILY KAITLIN Administration Amlodipine Besylate 10 mg 07/27/21 21:00 07/31/21 21:27 Amlodipine Besylate 5 Mg Tablet PO 10 mg HS KAITLIN Administration Aspirin 81 mg 07/26/21 09:00 08/01/21 08:19
--- NOTE | 2021-08-01 16:56 | PM.PNNEP ---
Progress Note: A&P Assessment and Plan (1) Chronic kidney disease, stage IV (severe): Code(s): N18.4 - Chronic kidney disease, stage 4 (severe) Status: Chronic Assessment and Plan: baseline creatinine ~ 2.6 - 3.0mg/dl due to hypertension and vascular disease as well as leftovers from previous TIFFNAY/ARF continue supportive therapy (2) Stroke: Qualifiers: CVA mechanism: unspecified Qualified Code(s): I63.9 - Cerebral infarction, unspecified Code(s): I63.9 - Cerebral infarction, unspecified Status: Acute Assessment and Plan: as noted by admission imaging Neurology following clinical improvement in CVA symptoms continue supportive care (3) Hypertension: Qualifiers: Hypertension type: unspecified Qualified Code(s): I10 - Essential (primary) hypertension Code(s): I10 - Essential (primary) hypertension Status: Acute Assessment and Plan: poor control even at baseline/as an outpatient some concerns regarding compliance even prior to admission continue current medications given his compliance issues, attempting to wean off clonidine (so as to avoid rebound HTN) if needed, we can change his amlodipine to nifedipine XL (4) Anemia: Code(s): D64.9 - Anemia, unspecified Status: Chronic Assessment and Plan: probably related to his underlying CKD no need for WAN at this time follow trend of H/H Will continue to follow. Subjective Date/time seen: 08/01/21 16:56 Speech continues to improve each day; no other acute issues or concerns voiced at this time; BP control remains a bit erratic still; no apparent distress noted; no events/problems overnight or earlier this AM. Exam Narrative: General: WD/WN male in NAD Heart: normal S1 and S2; no rub Lungs: clear to auscultation Abdomen: soft, nontender, nondistended, positive bowel sounds Extremities: no cyanosis or clubbing; no edema Skin: no rash or nodules Objective Data Vital Signs Vital Signs: Vital Signs Temp Pulse Resp BP Pulse Ox 08/01/21 16:04 76 08/01/21 16:00 76 154/88 H 08/01/21 12:45 35.2 C L 87 18 150/98 H 100 08/01/21 12:00 97 08/01/21 08:20 70 08/01/21 08:12 35.5 C L 86 16 167/95 H 100 08/01/21 08:00 89 08/01/21 04:00 36.2 C L 69 20 154/92 H 100 08/01/21 00:00 36.2 C L 72 20 153/90 H 100 07/31/21 22:32 143/91 H 07/31/21 21:27 78 07/31/21 20:00 36.1 C L 67 20 198/97 H 100 Intake/Output Intake/Output: Intake & Output 07/29/21 07/30/21 07/31/21 08/01/21 23:59 23:59 23:59 23:59 Intake Total 1480 1680 1510 1290 Output Total 3550 1850 1500 1950 Balance -4093 -360 10 -476 Meds/Results Medications: Active Medications Generic Name Dose Route Start Last Admin Trade Name Abelq PRN Reason Stop Dose Admin Allopurinol 300 mg 07/28/21 09:00 08/01/21 08:20 Allopurinol 300 Mg Tablet PO 300 mg DAILY KAITLIN Administration Amlodipine Besylate 10 mg 07/27/21 21:00 07/31/21 21:27 Amlodipine Besylate 5 Mg Tablet PO 10 mg HS KAITLIN Administration Aspirin 81 mg 07/26/21 09:00 08/01/21 08:19 Aspirin 81 Mg Enteric Tablet PO 81 mg QAM KAITLIN Administration Carvedilol 50 mg 07/30/21 09:00 08/01/21 08:20 Carvedilol 25 Mg Tablet PO 50 mg Q12HR KAITLIN Administration Clopidogrel Bisulfate 75 mg 07/26/21 09:00 08/01/21 08:20 Clopidogrel Bisulfate 75 Mg Tablet PO 75 mg QAM KAITLIN Administration Docusate Sodium 100 mg 08/01/21 21:00 Docusate Sodium 100 Mg Capsule PO Q12HR KAITLIN Furosemide 40 mg 07/27/21 09:00 08/01/21 16:04 Furosemide 40 Mg Tablet PO 40 mg BID KAITLIN Administration Hydralazine HCl 20 mg 07/27/21 07:30 07/29/21 19:05 Hydralazine Hcl 20 Mg/Ml Vial IV PUSH 20 mg Q4H PRN Administration SBP > 160 - Second Choice Labetalol HCl 20 mg 07/27/21 07:29 08/01/21 16:04 Labetalol Hcl Inj
--- NOTE | 2021-08-01 17:35 | PM.IMPN ---
Progress Note: A&P Assessment and Plan (1) Non-compliance: Code(s): Z91.19 - Patient's noncompliance with other medical treatment and regimen Status: Acute Assessment and Plan: Non compliance of HTN medications (2) Obstructive sleep apnea: Code(s): G47.33 - Obstructive sleep apnea (adult) (pediatric) Status: Chronic (3) Osteoarthritis of right knee: Qualifiers: Osteoarthritis type: primary Qualified Code(s): M17.11 - Unilateral primary osteoarthritis, right knee Code(s): M17.11 - Unilateral primary osteoarthritis, right knee Status: Chronic (4) Chronic kidney disease (CKD) stage G3a/A1, moderately decreased glomerular filtration rate (GFR) between 45-59 mL/min/1.73 square meter and albuminuria creatinine ratio less than 30 mg/g: Code(s): N18.3 - Chronic kidney disease, stage 3 (moderate) Status: Acute Assessment and Plan: Cr 3-->2.7 today Renal US shows medical disease Nephrology following, recommendations appreciated Avoid nephrotoxins Renally dose all meds Monitor (5) CKD (chronic kidney disease): Qualifiers: Chronic kidney disease stage: unspecified stage Qualified Code(s): N18.9 - Chronic kidney disease, unspecified Code(s): N18.9 - Chronic kidney disease, unspecified Status: Inactive (6) 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 and stage 1 chronic kidney disease: Code(s): I13.0 - Hypertensive heart and chronic kidney disease with heart failure and stage 1 through stage 4 chronic kidney disease, or unspecified chronic kidney disease; I50.41 - Acute combined systolic (congestive) and diastolic (congestive) heart failure; N18.1 - Chronic kidney disease, stage 1 Status: Acute Assessment and Plan: Echo pending (7) Stroke: Qualifiers: CVA mechanism: unspecified Qualified Code(s): I63.9 - Cerebral infarction, unspecified Code(s): I63.9 - Cerebral infarction, unspecified Status: Acute Assessment and Plan: MRI shows stroke -Moderate to large acute left frontoparietal lobe infarction. Echo pending Carotid Doppler less than 50% BL Continue asa, bp control, statin increased carvedilol 50 BID PT/OT/ST Would benefit from rehab at d/c Subjective Date/time seen: 08/01/21 17:35 Interval history: 07/28 61yo male with CKD, COLETTE and HTN here for acute CVA and hypertensive emergency. Bp is better pt can transfer to her medical floor today, pt appears garbled, slurred speech and slightly confused continue to monitor in the hospital. Pt has had a stroke. 07/29 pt seen and examined; no acute events overnight; continues with aphasia 07/30 pt seen and examined; BP elevated; able to say yes and no; still has some expressive aphasia when communicating 07/31 patient remains clinically stable has no new complaint unable to provide detailed review of symptom, seen by Neurology, echo is pending, patient working with PT OT and ST. 08/01 patient is sitting in the chair, his speech is little better than yesterday, patient been participate in PT OT and making improvement, patient will benefit from acute rehab before discharging, patient on acute on chronic kidney disease patient kidney function remains stable and seen by Nephrology further recommendation to follow Exam Narrative: Patient is comfortable, NAD HEENT: eyes are clear and none icteric LUNGS: normal respiratory effort ABD: distended Lower extremities: edema SKIN: nonjaundiced Neuro: grossly intact poor speech. Const: General: other (Garbled speech ) Nutritional Appearance: overweight Orientation/consciousness: patient oriented x3 HENMT: Head: normal to inspection Resp: Effort & Inspection: no respiratory distress Auscultation: no rhonchi and no wheezes Cardio: Rate: regular rate Rhythm: regular rhythm GI: Inspection: normal to inspection Auscultation:
[2021-08-01] MEDS: amLODIPine BESYLATE 5 MG TABLET 10 MG PO (21:00)
[2021-08-02] VITALS (14 sets, daily range): BP systolic 143–180; BP diastolic 83–112; PULSE 69–93; RESP 16–20; TEMP 36.2–36.8; O2SAT 97–100
[2021-08-02 05:50] LABS: Hemoglobin 9.9 g/dL (14.0-18.0); Mean Corpuscular HGB Conc 31.9 g/dl (32-36); Mean Corpuscular Hemoglobin 29.8 pg (26-34); Mean Corpuscular Volume 93.4 fl (80-100); Mean Platelet Volume 11.8 fl (7.4-10.4); Platelet Count Result 243 k/mm3 (150-375); Red Blood Count 3.32 M/mm3 (4.6-6.20); Red Cell Distribution Width 12.1 % (11.5-14.5); White Blood Count 5.4 K/mm3 (4.5-10.0)
[2021-08-02 06:02] LABS: Anion Gap 5 mmol/L (8-16); Blood Urea Nitrogen 33 mg/dL (9-20); Calcium 8.9 mg/dL (8.4-10.2); Carbon Dioxide 25 mmol/L (22-30); Chloride 108 mmol/L (98-107); Estimated CRCL calculation 36 ml/min; Estimated Glomerular Filt Rate 28; Glucose 94 mg/dL (65-110); Phosphorus 3.7 mg/dL (2.5-4.5); Potassium 3.5 mmol/L (3.4-5.0); Sodium 138 mmol/L (137-145)
[2021-08-02] MEDS: CLOPIDOGREL BISULFATE 75 MG TABLET PO (08:20)
[2021-08-02] MEDS: ROSUVASTATIN 10 MG TABLET PO (08:20)
[2021-08-02] MEDS: carvediloL 25 MG TABLET 50 MG PO ×2 (08:20→21:00)
[2021-08-02] MEDS: LOSARTAN POTASSIUM 100 MG TABLET PO (08:21)
[2021-08-02] MEDS: DOCUSATE SODIUM 100 MG CAPSULE PO ×2 (08:21→21:00)
[2021-08-02] MEDS: ASPIRIN 81 MG ENTERIC TABLET PO (08:21)
[2021-08-02] MEDS: allopurinoL 300 MG TABLET PO (08:21)
[2021-08-02] MEDS: FUROSEMIDE 40 MG TABLET PO ×2 (08:21→17:49)
[2021-08-02] MEDS: LABETALOL HCL INJ 100 MG/20 ML VIAL 20 MG IV PUSH ×2 (08:22→14:24)
[2021-08-02] MEDS: POTASSIUM CHLORIDE 20 MEQ TABLET PO (11:35)
--- NOTE | 2021-08-02 15:10 | P.DS_ITS ---
DS: Summary Time Spent with Patient Time attestation: Total time spent providing and/or coordinating discharge ser vices: DS: Data Data Completed and Pending Labs on day of discharge: Labs from last 24 hours 08/02/21 08/02/21 05:29 05:29 WBC 5.4 RBC 3.32 L Hgb 9.9 L Hct 31.0 L MCV 93.4 MCH 29.8 MCHC 31.9 L RDW 12.1 Plt Count 243 MPV 11.8 H Sodium 138 Potassium 3.5 Chloride 108 H Carbon Dioxide 25 Anion Gap 5 L BUN 33 H Creatinine 2.80 H Estim Creat Clear Calc 36 Estimated GFR 28 L Glucose 94 Calcium 8.9 Phosphorus 3.7 Albumin 3.0 L Discharge Plan Discharge Attending physician on discharge: Aspen Roberts Consulting providers: Zane Del Cid ; Jada Payne ; Homer Laws Discharging Clinician: Aspen Roberts Patient Disposition: Home Health Service Activity: as tolerated Diet: heart healthy Discharge Instructions: Care Coordination: Patient to have [facility] at discharge. They can b e reached at [phone] and will contact you to schedule your first visit. Patient to follow up with Dr. Laws and his primary care provider as soon as possible, patient is instructed if any symptoms redevelop to go to nearest ER Patient Instructions: Antibiotic Form, Ischemic Stroke (GEN), Self Care Measures After a Stroke (DC), Stroke (GEN) Stand Alone Forms: General Discharge Information Follow-up/Referrals: Madelin,Kenna Lucia MD [Primary Care Provider] - Zane Del Cid MD [Physician] - Homer Laws MD [Physician] - Discharge Medications: New clopidogrel 75 mg Tablet 75 mg PO QAM Qty: 30 RF: 1 carvedilol [Coreg] 25 mg Tablet 50 mg PO Q12HR Qty: 60 RF: 0 polyethylene glycol 3350 [Miralax] 17 gram Powder In Packet 17 g PO QAM PRN (Reason: Constipation) Qty: 30 RF: 0 docusate sodium 100 mg Capsule 100 mg PO Q12HR Qty: 60 RF: 0 Continued aspirin [Adult Low Dose Aspirin] 81 mg tablet,delayed release (DR/EC) 81 mg PO DAILY Qty: 30 RF: 0 furosemide 40 mg tablet 40 mg PO BID Qty: 60 RF: 0 amlodipine 10 mg tablet 10 mg PO DAILY Qty: 30 RF: 0 losartan 100 mg tablet 100 mg PO DAILY Qty: 30 RF: 0 rosuvastatin 10 mg tablet 10 mg PO DAILY Qty: 30 RF: 0 Changed allopurinol 300 mg tablet 300 mg PO DAILY Qty: 30 RF: 0 Held clonidine HCl 0.1 mg tablet 0.1 mg PO TID RF: 0 Hold Instructions: until seen by Dr. Laws Discontinued carvedilol 25 mg tablet 25 mg PO BID RF: 0 Date of admission: 07/25/21 23:52 Primary Care Provider: Madelin,Kenna Lucia Admitting Provider: Kael Garcia Attending physician on admission: Kael Garcia Condition: Guarded Prognosis Quality VTE Prophylaxis VTE prophylaxis: pharmacologic ordered
[2021-08-02] MEDS: hydrALAZINE HCL 20 MG/ML VIAL IV PUSH (15:46)
--- NOTE | 2021-08-02 15:58 | P.PNNP_ITS ---
Progress Note: A&P Assessment and Plan (1) Chronic kidney disease, stage IV (severe): Code(s): N18.4 - Chronic kidney disease, stage 4 (severe) Status: Chronic Assessment and Plan: * baseline creatinine ~ 2.6 - 3.0mg/dl * due to hypertension and vascular disease as well as leftovers from previous TIFFANY/ARF * continue supportive therapy (2) Stroke: Qualifiers: CVA mechanism: unspecified Qualified Code(s): I63.9 - Cerebral infarction, unspecified Code(s): I63.9 - Cerebral infarction, unspecified Status: Acute Assessment and Plan: * as noted by admission imaging * Neurology following * clinical improvement in CVA symptoms * continue supportive care (3) Hypertension: Qualifiers: Hypertension type: unspecified Qualified Code(s): I10 - Essential (primary) hypertension Code(s): I10 - Essential (primary) hypertension Status: Acute Assessment and Plan: * poor control even at baseline/as an outpatient * some concerns regarding compliance even prior to admission * continue current medications * given his compliance issues, attempting to wean off clonidine (so as to avoid rebound HTN) * change his amlodipine to nifedipine XL * follow trend of hemodynamics (4) Anemia: Code(s): D64.9 - Anemia, unspecified Status: Chronic Assessment and Plan: * probably related to his underlying CKD * no need for WAN at this time * follow trend of H/H Will continue to follow. Subjective Date/time seen: 08/02/21 15:58 Overall, continues to make good and steady progress with regard to his signs/symptoms of CVA; BP still somewhat difficult to control with current medications; no apparent distress voiced; no events/issues overnight or earlier this AM. Exam Narrative: General: WD/WN male in NAD Heart: normal S1 and S2; no rub Lungs: clear to auscultation Abdomen: soft, nontender, nondistended, positive bowel sounds Extremities: no cyanosis or clubbing; no edema Skin: warm and dry Objective Data Vital Signs Vital Signs: Vital Signs Temp Pulse Resp BP Pulse Ox 08/02/21 15:42 180/112 H 08/02/21 14:14 36.4 C L 74 16 174/112 H 100 08/02/21 12:00 87 08/02/21 09:45 36.2 C L 85 16 144/93 H 97 08/02/21 08:22 82 08/02/21 08:00 86 08/02/21 04:00 36.7 C 81 16 157/83 H 100 08/02/21 00:00 36.8 C 76 16 143/90 H 100 08/01/21 21:00 68 08/01/21 20:00 36.4 C 68 16 172/96 H 100 Intake/Output Intake/Output: Intake & Output 07/30/21 07/31/21 08/01/21 08/02/21 23:59 23:59 23:59 23:59 Intake Total 1680 1510 1290 1280 Output Total 1850 1500 1950 1550 Balance -170 03 -579 -182 Meds/Results Medications: Active Medications Generic Name Dose Route Start Last Admin Trade Name Anabela PRN Reason Stop Dose Admin Allopurinol 300 mg 07/28/21 09:00 08/02/21 08:21 Allopurinol 300 Mg Tablet PO 300 mg DAILY KAITLIN Administration Amlodipine Besylate 10 mg 07/27/21 21:00 08/01/21 21:00 Amlodipine Besylate 5 Mg Tablet PO 10 mg HS KAITLIN Administration Aspirin 81 mg 07/26/21 09:00 08/02/21 08:21 Aspirin 81 Mg Enteric Tablet PO 81
--- NOTE | 2021-08-02 15:58 | PM.PNNEP ---
Progress Note: A&P Assessment and Plan (1) Chronic kidney disease, stage IV (severe): Code(s): N18.4 - Chronic kidney disease, stage 4 (severe) Status: Chronic Assessment and Plan: baseline creatinine ~ 2.6 - 3.0mg/dl due to hypertension and vascular disease as well as leftovers from previous TIFFANY/ARF continue supportive therapy (2) Stroke: Qualifiers: CVA mechanism: unspecified Qualified Code(s): I63.9 - Cerebral infarction, unspecified Code(s): I63.9 - Cerebral infarction, unspecified Status: Acute Assessment and Plan: as noted by admission imaging Neurology following clinical improvement in CVA symptoms continue supportive care (3) Hypertension: Qualifiers: Hypertension type: unspecified Qualified Code(s): I10 - Essential (primary) hypertension Code(s): I10 - Essential (primary) hypertension Status: Acute Assessment and Plan: poor control even at baseline/as an outpatient some concerns regarding compliance even prior to admission continue current medications given his compliance issues, attempting to wean off clonidine (so as to avoid rebound HTN) change his amlodipine to nifedipine XL follow trend of hemodynamics (4) Anemia: Code(s): D64.9 - Anemia, unspecified Status: Chronic Assessment and Plan: probably related to his underlying CKD no need for WAN at this time follow trend of H/H Will continue to follow. Subjective Date/time seen: 08/02/21 15:58 Overall, continues to make good and steady progress with regard to his signs/symptoms of CVA; BP still somewhat difficult to control with current medications; no apparent distress voiced; no events/issues overnight or earlier this AM. Exam Narrative: General: WD/WN male in NAD Heart: normal S1 and S2; no rub Lungs: clear to auscultation Abdomen: soft, nontender, nondistended, positive bowel sounds Extremities: no cyanosis or clubbing; no edema Skin: warm and dry Objective Data Vital Signs Vital Signs: Vital Signs Temp Pulse Resp BP Pulse Ox 08/02/21 15:42 180/112 H 08/02/21 14:14 36.4 C L 74 16 174/112 H 100 08/02/21 12:00 87 08/02/21 09:45 36.2 C L 85 16 144/93 H 97 08/02/21 08:22 82 08/02/21 08:00 86 08/02/21 04:00 36.7 C 81 16 157/83 H 100 08/02/21 00:00 36.8 C 76 16 143/90 H 100 08/01/21 21:00 68 08/01/21 20:00 36.4 C 68 16 172/96 H 100 Intake/Output Intake/Output: Intake & Output 07/30/21 07/31/21 08/01/21 08/02/21 23:59 23:59 23:59 23:59 Intake Total 1680 1510 1290 1280 Output Total 1850 1500 1950 1550 Balance -170 91 -978 -058 Meds/Results Medications: Active Medications Generic Name Dose Route Start Last Admin Trade Name Freq PRN Reason Stop Dose Admin Allopurinol 300 mg 07/28/21 09:00 08/02/21 08:21 Allopurinol 300 Mg Tablet PO 300 mg DAILY KAITLIN Administration Amlodipine Besylate 10 mg 07/27/21 21:00 08/01/21 21:00 Amlodipine Besylate 5 Mg Tablet PO 10 mg HS KAITLIN Administration Aspirin 81 mg 07/26/21 09:00 08/02/21 08:21 Aspirin 81 Mg Enteric Tablet PO 81 mg QAM KAITLIN Administration Carvedilol 50 mg 07/30/21 09:00 08/02/21 08:20 Carvedilol 25 Mg Tablet PO 50 mg Q12HR KAITLIN Administration Clopidogrel Bisulfate 75 mg 07/26/21 09:00 08/02/21 08:20 Clopidogrel Bisulfate 75 Mg Tablet PO 75 mg QAM KAITLIN Administration Docusate Sodium 100 mg 08/01/21 21:00 08/02/21 08:21 Docusate Sodium 100 Mg Capsule PO 100 mg Q12HR KAITLIN Administration Furosemide 40 mg 07/27/21 09:00 08/02/21 17:49 Furosemide 40 Mg Tablet PO 40 mg BID KAITLIN Administration Hydralazine HCl 20 mg 07/27/21 07:30 08/02/21 15:46 Hydralazine Hcl 20 Mg/Ml Vial IV PUSH 20 mg Q4H PRN Administration SBP > 160 - Second Choice Labetalol HCl 20 mg 07/27/21 07:29 08/02/21 14:24 Labetalol Hcl
--- NOTE | 2021-08-02 16:26 | PM.IMPN ---
Progress Note: A&P Assessment and Plan (1) Non-compliance: Code(s): Z91.19 - Patient's noncompliance with other medical treatment and regimen Status: Acute Assessment and Plan: Non compliance of HTN medications (2) Obstructive sleep apnea: Code(s): G47.33 - Obstructive sleep apnea (adult) (pediatric) Status: Chronic (3) Osteoarthritis of right knee: Qualifiers: Osteoarthritis type: primary Qualified Code(s): M17.11 - Unilateral primary osteoarthritis, right knee Code(s): M17.11 - Unilateral primary osteoarthritis, right knee Status: Chronic (4) Chronic kidney disease (CKD) stage G3a/A1, moderately decreased glomerular filtration rate (GFR) between 45-59 mL/min/1.73 square meter and albuminuria creatinine ratio less than 30 mg/g: Code(s): N18.3 - Chronic kidney disease, stage 3 (moderate) Status: Acute Assessment and Plan: Cr 3-->2.7 today Renal US shows medical disease Nephrology following, recommendations appreciated Avoid nephrotoxins Renally dose all meds Monitor (5) CKD (chronic kidney disease): Qualifiers: Chronic kidney disease stage: unspecified stage Qualified Code(s): N18.9 - Chronic kidney disease, unspecified Code(s): N18.9 - Chronic kidney disease, unspecified Status: Inactive (6) 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 and stage 1 chronic kidney disease: Code(s): I13.0 - Hypertensive heart and chronic kidney disease with heart failure and stage 1 through stage 4 chronic kidney disease, or unspecified chronic kidney disease; I50.41 - Acute combined systolic (congestive) and diastolic (congestive) heart failure; N18.1 - Chronic kidney disease, stage 1 Status: Acute Assessment and Plan: Echo pending (7) Stroke: Qualifiers: CVA mechanism: unspecified Qualified Code(s): I63.9 - Cerebral infarction, unspecified Code(s): I63.9 - Cerebral infarction, unspecified Status: Acute Assessment and Plan: MRI shows stroke -Moderate to large acute left frontoparietal lobe infarction. Echo pending Carotid Doppler less than 50% BL Continue asa, bp control, statin increased carvedilol 50 BID PT/OT/ST Would benefit from rehab at d/c Subjective Date/time seen: 08/02/21 16:26 Interval history: 07/28 61yo male with CKD, COLETTE and HTN here for acute CVA and hypertensive emergency. Bp is better pt can transfer to her medical floor today, pt appears garbled, slurred speech and slightly confused continue to monitor in the hospital. Pt has had a stroke. 07/29 pt seen and examined; no acute events overnight; continues with aphasia 07/30 pt seen and examined; BP elevated; able to say yes and no; still has some expressive aphasia when communicating 07/31 patient remains clinically stable has no new complaint unable to provide detailed review of symptom, seen by Neurology, echo is pending, patient working with PT OT and ST. 08/01 patient is sitting in the chair, his speech is little better than yesterday, patient been participate in PT OT and making improvement, patient will benefit from acute rehab before discharging, patient on acute on chronic kidney disease patient kidney function remains stable and seen by Nephrology further recommendation to follow. 08/02 today patient remains clinically stable, however patient blood pressure remains high and was treated and was treated labetalol communicated with Nephrology will adjust the medication and further recommendation to follow will continue to monitor the patient. Review of Systems Review of Systems: All systems reviewed & are unremarkable except as noted in HPI and below Exam Narrative: Patient is comfortable, NAD HEENT: eyes are clear and none icteric LUNGS:CTA HEART: RR S1S2 ABD: BS+, Soft and nontender Lower extremities: no edema SKIN: nonjaundiced Neuro:
[2021-08-02] MEDS: NIFEdipine 30 MG TAB.ER.24 PO (21:00)
[2021-08-03] VITALS (16 sets, daily range): BP systolic 110–170; BP diastolic 74–100; PULSE 68–95; RESP 18–20; TEMP 36.1–37.4; O2SAT 95–100
[2021-08-03 05:49] LABS: Albumin Level 3.1 g/dL (3.5-5.1); Anion Gap 6 mmol/L (8-16); Blood Urea Nitrogen 34 mg/dL (9-20); Calcium 8.9 mg/dL (8.4-10.2); Carbon Dioxide 25 mmol/L (22-30); Chloride 109 mmol/L (98-107); Estimated CRCL calculation 34 ml/min; Estimated Glomerular Filt Rate 27; Glucose 97 mg/dL (65-110); Hematocrit 32.7 % (42.0-52.0); Hemoglobin 10.2 g/dL (14.0-18.0); Mean Corpuscular HGB Conc 31.2 g/dl (32-36); Mean Corpuscular Hemoglobin 30.1 pg (26-34); Mean Corpuscular Volume 96.5 fl (80-100); Mean Platelet Volume 11.8 fl (7.4-10.4); Phosphorus 3.6 mg/dL (2.5-4.5); Platelet Count Result 262 k/mm3 (150-375); Potassium 3.8 mmol/L (3.4-5.0); Red Blood Count 3.39 M/mm3 (4.6-6.20); Red Cell Distribution Width 12.4 % (11.5-14.5); Sodium 140 mmol/L (137-145); White Blood Count 5.5 K/mm3 (4.5-10.0)
[2021-08-03] MEDS: ASPIRIN 81 MG ENTERIC TABLET PO (08:11)
[2021-08-03] MEDS: allopurinoL 300 MG TABLET PO (08:11)
[2021-08-03] MEDS: FUROSEMIDE 40 MG TABLET PO ×2 (08:11→16:45)
[2021-08-03] MEDS: CLOPIDOGREL BISULFATE 75 MG TABLET PO (08:11)
[2021-08-03] MEDS: DOCUSATE SODIUM 100 MG CAPSULE PO ×2 (08:11→21:11)
[2021-08-03] MEDS: ROSUVASTATIN 10 MG TABLET PO (08:12)
[2021-08-03] MEDS: LOSARTAN POTASSIUM 100 MG TABLET PO (08:12)
[2021-08-03] MEDS: carvediloL 25 MG TABLET 50 MG PO ×2 (09:51→21:11)
[2021-08-03] MEDS: polyethylene glycoL 3350 17 GM POWD.PACK PO (09:52)
[2021-08-03] MEDS: LABETALOL HCL INJ 100 MG/20 ML VIAL 20 MG IV PUSH (10:31)
--- NOTE | 2021-08-03 11:51 | WPDNEUROPN ---
Progress Note: A&P Additional Plan considering renal status depakote is being used instead of keppra/ordered Review of Systems Review of Systems: All systems reviewed & are unremarkable except as noted in HPI and below Objective Data Vital Signs Vital Signs: Vital Signs - 24 hr 08/02/21 12:00 08/02/21 14:14 08/02/21 15:42 Temperature 36.4 C L Pulse Rate 87 74 Respiratory Rate 16 Blood Pressure 174/112 H 180/112 H Pulse Oximetry 100 08/02/21 16:00 08/02/21 16:40 08/02/21 17:51 Temperature 36.3 C L Pulse Rate 83 86 Respiratory Rate 16 Blood Pressure 154/86 H 145/83 H Pulse Oximetry 100 08/02/21 20:00 08/02/21 21:00 08/02/21 21:10 Temperature 36.3 C L Pulse Rate 93 78 83 Respiratory Rate 20 Blood Pressure 146/83 H Pulse Oximetry 98 08/03/21 00:00 08/03/21 00:17 08/03/21 04:00 Temperature 36.9 C Pulse Rate 73 81 68 Respiratory Rate 20 Blood Pressure 125/82 Pulse Oximetry 98 08/03/21 04:24 08/03/21 08:00 08/03/21 09:51 Temperature 36.6 C Pulse Rate 82 89 80 Respiratory Rate 20 Blood Pressure 138/74 Pulse Oximetry 100 08/03/21 10:00 08/03/21 10:27 08/03/21 10:31 Temperature 36.1 C L Pulse Rate 81 81 Respiratory Rate 18 Blood Pressure 164/100 H Pulse Oximetry 100 100 Intake/Output Intake/Output: Intake & Output 07/31/21 08/01/21 08/02/21 08/03/21 23:59 23:59 23:59 23:59 Intake Total 1510 1290 1280 530 Output Total 1500 1950 1550 800 Balance 10 -213 -270 -270 Meds/Results Medications: Active Medications Generic Name Dose Route Start Last Admin Trade Name Freq PRN Reason Stop Dose Admin Allopurinol 300 mg 07/28/21 09:00 08/03/21 08:11 Allopurinol 300 Mg Tablet PO 300 mg DAILY KAITLIN Administration Aspirin 81 mg 07/26/21 09:00 08/03/21 08:11 Aspirin 81 Mg Enteric Tablet PO 81 mg QAM KAITLIN Administration Carvedilol 50 mg 07/30/21 09:00 08/03/21 09:51 Carvedilol 25 Mg Tablet PO 50 mg Q12HR KAITLIN Administration Clopidogrel Bisulfate 75 mg 07/26/21 09:00 08/03/21 08:11 Clopidogrel Bisulfate 75 Mg Tablet PO 75 mg QAM KAITLIN Administration Docusate Sodium 100 mg 08/01/21 21:00 08/03/21 08:11 Docusate Sodium 100 Mg Capsule PO 100 mg Q12HR KAITLIN Administration Furosemide 40 mg 07/27/21 09:00 08/03/21 08:11 Furosemide 40 Mg Tablet PO 40 mg BID KAITLIN Administration Hydralazine HCl 20 mg 07/27/21 07:30 08/02/21 15:46 Hydralazine Hcl 20 Mg/Ml Vial IV PUSH 20 mg Q4H PRN Administration SBP > 160 - Second Choice Labetalol HCl 20 mg 07/27/21 07:29 08/03/21 10:31 Labetalol Hcl Inj 100 Mg/20 Ml Vial IV PUSH 20 mg Q4H PRN Administration SBP > 160 Losartan Potassium 100 mg 07/26/21 09:00 08/03/21 08:12 Losartan Potassium 100 Mg Tablet PO 100 mg DAILY KAITLIN Administration Nifedipine 30 mg 08/02/21 21:00 08/02/21 21:00 Nifedipine 30 Mg Tab.Er.24 PO 30 mg HS KAITLIN Administration Polyethylene Glycol 17 gm 08/01/21 10:55 08/03/21 09:52 Polyethylene Glycol 3350 17 Gm Powd.Pack PO 17 gm QAM PRN Administration Constipation Rosuvastatin Calcium 10 mg 07/26/21 09:00 08/03/21 08:12 Rosuvastatin 10 Mg Tablet PO 10 mg DAILY KAITLIN Administration Radiology Results: ITS Impressions Chest X-Ray 07/25/21 22:00 IMPRESSION: 1: NO ACUTE CARDIOPULMONARY DISEASE. Head CT 07/25/21 22:22 IMPRESSION: 1. Regional hypodensity of the left parietal lobe, consistent with acute/subacute infarction. No associated hemorrhage. 2: Chronic right cerebellar infarction. Dr. Akbar Cain discussed with Dr. Devante Morataya MD at 07/25/2021 22:23 CDT. Renal Ultrasound 07/26/21 12:31 IMPRESSION: 1. Medical renal disease. Carotid Doppler Study 07/26/21 12:34 IMPRESSION: 1. <50% stenosis in the right internal carotid artery. 2. <50% stenosis in the left internal carotid artery. Brain MRI
--- NOTE | 2021-08-03 12:25 | PM.IMPN ---
Progress Note: A&P Assessment and Plan (1) Non-compliance: Code(s): Z91.19 - Patient's noncompliance with other medical treatment and regimen Status: Acute Assessment and Plan: 07/28 61yo male with CKD, COLETTE and HTN here for acute CVA and hypertensive emergency. Bp is better pt can transfer to her medical floor today, pt appears garbled, slurred speech and slightly confused continue to monitor in the hospital. Pt has had a stroke. 07/29 pt seen and examined; no acute events overnight; continues with aphasia 07/30 pt seen and examined; BP elevated; able to say yes and no; still has some expressive aphasia when communicating 07/31 patient remains clinically stable has no new complaint unable to provide detailed review of symptom, seen by Neurology, echo is pending, patient working with PT OT and ST. 08/01 patient is sitting in the chair, his speech is little better than yesterday, patient been participate in PT OT and making improvement, patient will benefit from acute rehab before discharging, patient on acute on chronic kidney disease patient kidney function remains stable and seen by Nephrology further recommendation to follow. 08/02 today patient remains clinically stable, however patient blood pressure remains high and was treated and was treated labetalol communicated with Nephrology will adjust the medication and further recommendation to follow will continue to monitor the patient. 08/03 patient remains clinically stable his speech and activities are improving however patient blood pressure still fluctuates and remains high, seen by Nephrology DC amlodipine and start the patient on Procardia 30 mg q.day, continue to monitor, patient is encouraged participate PT OT and ST. patient seen by Neurology and suspect patient is having seizures and started the patient on Depakote, if blood pressure remains stable may be discharged tomorrow Non compliance of HTN medications (2) Obstructive sleep apnea: Code(s): G47.33 - Obstructive sleep apnea (adult) (pediatric) Status: Chronic (3) Osteoarthritis of right knee: Qualifiers: Osteoarthritis type: primary Qualified Code(s): M17.11 - Unilateral primary osteoarthritis, right knee Code(s): M17.11 - Unilateral primary osteoarthritis, right knee Status: Chronic (4) Chronic kidney disease (CKD) stage G3a/A1, moderately decreased glomerular filtration rate (GFR) between 45-59 mL/min/1.73 square meter and albuminuria creatinine ratio less than 30 mg/g: Code(s): N18.3 - Chronic kidney disease, stage 3 (moderate) Status: Acute Assessment and Plan: Cr 3-->2.7 today Renal US shows medical disease Nephrology following, recommendations appreciated Avoid nephrotoxins Renally dose all meds Monitor (5) CKD (chronic kidney disease): Qualifiers: Chronic kidney disease stage: unspecified stage Qualified Code(s): N18.9 - Chronic kidney disease, unspecified Code(s): N18.9 - Chronic kidney disease, unspecified Status: Inactive (6) 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 and stage 1 chronic kidney disease: Code(s): I13.0 - Hypertensive heart and chronic kidney disease with heart failure and stage 1 through stage 4 chronic kidney disease, or unspecified chronic kidney disease; I50.41 - Acute combined systolic (congestive) and diastolic (congestive) heart failure; N18.1 - Chronic kidney disease, stage 1 Status: Acute Assessment and Plan: Echo pending (7) Stroke: Qualifiers: CVA mechanism: unspecified Qualified Code(s): I63.9 - Cerebral infarction, unspecified Code(s): I63.9 - Cerebral infarction, unspecified Status: Acute Assessment and Plan: MRI shows stroke -Moderate to large acute left frontoparietal lobe infarction. Echo pending Carotid Doppler less than 50% BL Continue asa, bp control, stati
[2021-08-03] MEDS: DIVALPROEX SODIUM DR 250 MG TABEC 500 MG PO ×2 (13:29→21:11)
--- NOTE | 2021-08-03 14:24 | P.PNNP_ITS ---
Progress Note: A&P Assessment and Plan (1) Chronic kidney disease, stage IV (severe): Code(s): N18.4 - Chronic kidney disease, stage 4 (severe) Status: Chronic Assessment and Plan: * baseline creatinine ~ 2.6 - 3.0mg/dl * due to hypertension and vascular disease as well as leftovers from previous TIFFANY/ARF * continue supportive therapy (2) Stroke: Qualifiers: CVA mechanism: unspecified Qualified Code(s): I63.9 - Cerebral infarction, unspecified Code(s): I63.9 - Cerebral infarction, unspecified Status: Acute Assessment and Plan: * as noted by admission imaging * Neurology following * clinical improvement in CVA symptoms * continue supportive care (3) Hypertension: Qualifiers: Hypertension type: unspecified Qualified Code(s): I10 - Essential (primary) hypertension Code(s): I10 - Essential (primary) hypertension Status: Acute Assessment and Plan: * poor control even at baseline/as an outpatient * some concerns regarding compliance even prior to admission * continue current medications * given his compliance issues, weaned off clonidine (so as to avoid rebound HTN) * changed his amlodipine to nifedipine XL * follow trend of hemodynamics (4) Anemia: Code(s): D64.9 - Anemia, unspecified Status: Chronic Assessment and Plan: * probably related to his underlying CKD * no need for WAN at this time * follow trend of H/H Will continue to follow - would not be opposed to discharge later today or tomorrow from renal perspective if otherwise medically stable. Subjective Date/time seen: 08/03/21 14:24 Blood pressure seems to be doing better following recent medication change/adjustments; speech continues to improve if not stabilize; no issues/events overnight or earlier this AM; continues to work with PT/OT/ST as tolerated. Exam Narrative: General: WD/WN male in NAD Heart: normal S1 and S2; no rub Lungs: clear to auscultation Abdomen: soft, nontender, nondistended, positive bowel sounds Extremities: no cyanosis or clubbing; no edema Skin: warm and intact Objective Data Vital Signs Vital Signs: Vital Signs Temp Pulse Resp BP Pulse Ox 08/03/21 14:00 37.4 C 95 18 110/76 95 08/03/21 12:00 90 08/03/21 10:31 81 08/03/21 10:27 100 08/03/21 10:00 36.1 C L 81 18 164/100 H 100 08/03/21 09:51 80 08/03/21 08:00 89 08/03/21 04:24 36.6 C 82 20 138/74 100 08/03/21 04:00 68 08/03/21 00:17 36.9 C 81 20 125/82 98 08/03/21 00:00 73 08/02/21 21:10 36.3 C L 83 20 146/83 H 98 08/02/21 21:00 78 08/02/21 20:00 93 08/02/21 17:51 36.3 C L 86 16 145/83 H 100 08/02/21 16:40 154/86 H 08/02/21 16:00 83 08/02/21 15:42 180/112 H Intake/Output Intake/Output: Intake & Output 07/31/21 08/01/21 08/02/21 08/03/21 23:59 23:59 23:59 23:59 Intake Total 1510 1290 1280 770 Output Total 1500 1950 1550 800 Balance 10 -660 -270 -30 Meds/Results Medications: Active Medications Generic Name Dose Route Start Last Admin Trade Name Freq PRN Reason Stop Dose Admin Allopurinol 30
--- NOTE | 2021-08-03 14:24 | PM.PNNEP ---
Progress Note: A&P Assessment and Plan (1) Chronic kidney disease, stage IV (severe): Code(s): N18.4 - Chronic kidney disease, stage 4 (severe) Status: Chronic Assessment and Plan: baseline creatinine ~ 2.6 - 3.0mg/dl due to hypertension and vascular disease as well as leftovers from previous TIFFANY/ARF continue supportive therapy (2) Stroke: Qualifiers: CVA mechanism: unspecified Qualified Code(s): I63.9 - Cerebral infarction, unspecified Code(s): I63.9 - Cerebral infarction, unspecified Status: Acute Assessment and Plan: as noted by admission imaging Neurology following clinical improvement in CVA symptoms continue supportive care (3) Hypertension: Qualifiers: Hypertension type: unspecified Qualified Code(s): I10 - Essential (primary) hypertension Code(s): I10 - Essential (primary) hypertension Status: Acute Assessment and Plan: poor control even at baseline/as an outpatient some concerns regarding compliance even prior to admission continue current medications given his compliance issues, weaned off clonidine (so as to avoid rebound HTN) changed his amlodipine to nifedipine XL follow trend of hemodynamics (4) Anemia: Code(s): D64.9 - Anemia, unspecified Status: Chronic Assessment and Plan: probably related to his underlying CKD no need for WAN at this time follow trend of H/H Will continue to follow - would not be opposed to discharge later today or tomorrow from renal perspective if otherwise medically stable. Subjective Date/time seen: 08/03/21 14:24 Blood pressure seems to be doing better following recent medication change/adjustments; speech continues to improve if not stabilize; no issues/events overnight or earlier this AM; continues to work with PT/OT/ST as tolerated. Exam Narrative: General: WD/WN male in NAD Heart: normal S1 and S2; no rub Lungs: clear to auscultation Abdomen: soft, nontender, nondistended, positive bowel sounds Extremities: no cyanosis or clubbing; no edema Skin: warm and intact Objective Data Vital Signs Vital Signs: Vital Signs Temp Pulse Resp BP Pulse Ox 08/03/21 14:00 37.4 C 95 18 110/76 95 08/03/21 12:00 90 08/03/21 10:31 81 08/03/21 10:27 100 08/03/21 10:00 36.1 C L 81 18 164/100 H 100 08/03/21 09:51 80 08/03/21 08:00 89 08/03/21 04:24 36.6 C 82 20 138/74 100 08/03/21 04:00 68 08/03/21 00:17 36.9 C 81 20 125/82 98 08/03/21 00:00 73 08/02/21 21:10 36.3 C L 83 20 146/83 H 98 08/02/21 21:00 78 08/02/21 20:00 93 08/02/21 17:51 36.3 C L 86 16 145/83 H 100 08/02/21 16:40 154/86 H 08/02/21 16:00 83 08/02/21 15:42 180/112 H Intake/Output Intake/Output: Intake & Output 07/31/21 08/01/21 08/02/21 08/03/21 23:59 23:59 23:59 23:59 Intake Total 1510 1290 1280 770 Output Total 1500 1950 1550 800 Balance 10 -660 -270 -30 Meds/Results Medications: Active Medications Generic Name Dose Route Start Last Admin Trade Name Anabela PRN Reason Stop Dose Admin Allopurinol 300 mg 07/28/21 09:00 08/03/21 08:11 Allopurinol 300 Mg Tablet PO 300 mg DAILY KAITLIN Administration Aspirin 81 mg 07/26/21 09:00 08/03/21 08:11 Aspirin 81 Mg Enteric Tablet PO 81 mg QAM KAITLIN Administration Carvedilol 50 mg 07/30/21 09:00 08/03/21 09:51 Carvedilol 25 Mg Tablet PO 50 mg Q12HR KAITLIN Administration Clopidogrel Bisulfate 75 mg 07/26/21 09:00 08/03/21 08:11 Clopidogrel Bisulfate 75 Mg Tablet PO 75 mg QAM KAITLIN Administration Divalproex Sodium 500 mg 08/03/21 14:00 08/03/21 13:[address] 250 Mg Tabec PO 500 mg Q8HR KAITLIN Administration Docusate Sodium 100 mg 08/01/21 21:00 08/03/21 08:11 Docusate Sodium 100 Mg Capsule PO 100 mg Q12HR KAITLIN Administration Furosemide 40 mg 07/27/21 09:
[2021-08-03] MEDS: NIFEdipine 30 MG TAB.ER.24 PO (21:10)
[2021-08-04] VITALS (11 sets, daily range): BP systolic 130–158; BP diastolic 62–118; PULSE 66–83; RESP 18; TEMP 35.7–36.6; O2SAT 99–100
[2021-08-04] MEDS: DIVALPROEX SODIUM DR 250 MG TABEC 500 MG PO ×2 (05:09→14:26)
[2021-08-04] MEDS: LABETALOL HCL INJ 100 MG/20 ML VIAL 20 MG IV PUSH (05:35)
[2021-08-04 05:43] LABS: Hematocrit 32.1 % (42.0-52.0); Hemoglobin 9.9 g/dL (14.0-18.0); Mean Corpuscular HGB Conc 30.8 g/dl (32-36); Mean Corpuscular Hemoglobin 29.9 pg (26-34); Mean Platelet Volume 11.5 fl (7.4-10.4); Platelet Count Result 258 k/mm3 (150-375); Red Blood Count 3.31 M/mm3 (4.6-6.20); Red Cell Distribution Width 12.4 % (11.5-14.5); White Blood Count 6.1 K/mm3 (4.5-10.0)
[2021-08-04 05:51] LABS: Albumin Level 3.2 g/dL (3.5-5.1); Anion Gap 5 mmol/L (8-16); Blood Urea Nitrogen 36 mg/dL (9-20); Carbon Dioxide 25 mmol/L (22-30); Chloride 109 mmol/L (98-107); Estimated CRCL calculation 33 ml/min; Estimated Glomerular Filt Rate 26; Glucose 100 mg/dL (65-110); Phosphorus 3.6 mg/dL (2.5-4.5); Potassium 3.8 mmol/L (3.4-5.0); Sodium 139 mmol/L (137-145)
[2021-08-04] MEDS: FUROSEMIDE 40 MG TABLET PO ×2 (08:32→16:30)
[2021-08-04] MEDS: allopurinoL 300 MG TABLET PO (08:32)
[2021-08-04] MEDS: ROSUVASTATIN 10 MG TABLET PO (08:32)
[2021-08-04] MEDS: DOCUSATE SODIUM 100 MG CAPSULE PO (08:32)
[2021-08-04] MEDS: LOSARTAN POTASSIUM 100 MG TABLET PO (08:32)
[2021-08-04] MEDS: carvediloL 25 MG TABLET 50 MG PO (08:32)
[2021-08-04] MEDS: ASPIRIN 81 MG ENTERIC TABLET PO (08:32)
[2021-08-04] MEDS: CLOPIDOGREL BISULFATE 75 MG TABLET PO (08:32)
--- NOTE | 2021-08-04 13:15 | PM.IMPN ---
Subjective Date/time seen: 08/04/21 13:15 Objective Data Vital Signs Vital Signs: Vital Signs - 24 hr 08/03/21 14:00 08/03/21 16:00 08/03/21 18:00 Temperature 99.4 F Pulse Rate 95 89 90 Respiratory Rate 18 20 Blood Pressure 110/76 161/91 H Pulse Oximetry 95 100 08/03/21 20:00 08/03/21 21:08 08/03/21 21:11 Temperature 98.3 F Pulse Rate 77 77 76 Respiratory Rate 18 Blood Pressure 170/84 H Pulse Oximetry 100 08/04/21 00:00 08/04/21 00:28 08/04/21 04:00 Temperature 97.6 F Pulse Rate 77 73 73 Respiratory Rate 18 Blood Pressure 139/62 Pulse Oximetry 99 08/04/21 05:35 08/04/21 05:40 08/04/21 08:00 Temperature 97.8 F Pulse Rate 66 79 75 Respiratory Rate 18 Blood Pressure 138/78 Pulse Oximetry 100 08/04/21 08:32 08/04/21 10:35 Temperature 96.3 F L Pulse Rate 79 74 Respiratory Rate 18 Blood Pressure 130/96 H Pulse Oximetry 100 Intake/Output Intake/Output: Intake & Output 08/01/21 08/02/21 08/03/21 08/04/21 23:59 23:59 23:59 23:59 Intake Total 1290 1280 1630 710 Output Total 1950 1550 1450 500 Balance -660 -270 180 210 Meds/Results Medications: Active Medications Generic Name Dose Route Start Last Admin Trade Name Freq PRN Reason Stop Dose Admin Allopurinol 300 mg 07/28/21 09:00 08/04/21 08:32 Allopurinol 300 Mg Tablet PO 300 mg DAILY KAITLIN Administration Aspirin 81 mg 07/26/21 09:00 08/04/21 08:32 Aspirin 81 Mg Enteric Tablet PO 81 mg QAM KAITLIN Administration Carvedilol 50 mg 07/30/21 09:00 08/04/21 08:32 Carvedilol 25 Mg Tablet PO 50 mg Q12HR KAITLIN Administration Clopidogrel Bisulfate 75 mg 07/26/21 09:00 08/04/21 08:32 Clopidogrel Bisulfate 75 Mg Tablet PO 75 mg QAM KAITLIN Administration Divalproex Sodium 500 mg 08/03/21 14:00 08/04/21 05:[address] 250 Mg Tabec PO 500 mg Q8HR KAITLIN Administration Docusate Sodium 100 mg 08/01/21 21:00 08/04/21 08:32 Docusate Sodium 100 Mg Capsule PO 100 mg Q12HR KAITLIN Administration Furosemide 40 mg 07/27/21 09:00 08/04/21 08:32 Furosemide 40 Mg Tablet PO 40 mg BID KAITLIN Administration Hydralazine HCl 20 mg 07/27/21 07:30 08/02/21 15:46 Hydralazine Hcl 20 Mg/Ml Vial IV PUSH 20 mg Q4H PRN Administration SBP > 160 - Second Choice Labetalol HCl 20 mg 07/27/21 07:29 08/04/21 05:35 Labetalol Hcl Inj 100 Mg/20 Ml Vial IV PUSH 20 mg Q4H PRN Administration SBP > 160 Losartan Potassium 100 mg 07/26/21 09:00 08/04/21 08:32 Losartan Potassium 100 Mg Tablet PO 100 mg DAILY KAITLIN Administration Nifedipine 30 mg 08/02/21 21:00 08/03/21 21:10 Nifedipine 30 Mg Tab.Er.24 PO 30 mg HS KAITLIN Administration Polyethylene Glycol 17 gm 08/01/21 10:55 08/03/21 09:52 Polyethylene Glycol 3350 17 Gm Powd.Pack PO 17 gm QAM PRN Administration Constipation Rosuvastatin Calcium 10 mg 07/26/21 09:00 08/04/21 08:32 Rosuvastatin 10 Mg Tablet PO 10 mg DAILY KAITLIN Administration Radiology Results: ITS Impressions Chest X-Ray 07/25/21 22:00 IMPRESSION: 1: NO ACUTE CARDIOPULMONARY DISEASE. Head CT 07/25/21 22:22 IMPRESSION: 1. Regional hypodensity of the left parietal lobe, consistent with acute/subacute infarction. No associated hemorrhage. 2: Chronic right cerebellar infarction. Dr. Akbar Cain discussed with Dr. Devante Morataya MD at 07/25/2021 22:23 CDT. Renal Ultrasound 07/26/21 12:31 IMPRESSION: 1. Medical renal disease. Carotid Doppler Study 07/26/21 12:34 IMPRESSION: 1. <50% stenosis in the right internal carotid artery. 2. <50% stenosis in the left internal carotid artery. Brain MRI 07/26/21 16:33 IMPRESSION: 1. Moderate to large acute left frontoparietal lobe infarction. 2. Small old right cerebellar infarction. 3. Mild microangiopathy. Labs Labs: Laboratory Results - last 24 hr 08/04/21
--- NOTE | 2021-08-04 13:32 | PM.DS ---
DS: Admitting Diagnosis Discharge Date 2020 Admitting Diagnosis HYPERTENSIVE URGENCY WITH ENCEPHALOPATHY AND ACUTE LEFT MIDDLE CEREBRAL ARTERY STROKE DS: Discharge Diagnosis Discharge Diagnosis (1) Non-compliance: Code(s): Z91.19 - Patient's noncompliance with other medical treatment and regimen Status: Acute Assessment and Plan: 07/28 61yo male with CKD, COLETTE and HTN here for acute CVA and hypertensive emergency. Bp is better pt can transfer to her medical floor today, pt appears garbled, slurred speech and slightly confused continue to monitor in the hospital. Pt has had a stroke. 07/29 pt seen and examined; no acute events overnight; continues with aphasia 07/30 pt seen and examined; BP elevated; able to say yes and no; still has some expressive aphasia when communicating 07/31 patient remains clinically stable has no new complaint unable to provide detailed review of symptom, seen by Neurology, echo is pending, patient working with PT OT and ST. 08/01 patient is sitting in the chair, his speech is little better than yesterday, patient been participate in PT OT and making improvement, patient will benefit from acute rehab before discharging, patient on acute on chronic kidney disease patient kidney function remains stable and seen by Nephrology further recommendation to follow. 08/02 today patient remains clinically stable, however patient blood pressure remains high and was treated and was treated labetalol communicated with Nephrology will adjust the medication and further recommendation to follow will continue to monitor the patient. 08/03 patient remains clinically stable his speech and activities are improving however patient blood pressure still fluctuates and remains high, seen by Nephrology DC amlodipine and start the patient on Procardia 30 mg q.day, continue to monitor, patient is encouraged participate PT OT and ST. patient seen by Neurology and suspect patient is having seizures and started the patient on Depakote, if blood pressure remains stable may be discharged tomorrow Non compliance of HTN medications 08/04: BP stable overnight w/o need for IV labetalol. Discharged home with home health to stay with his friend for at least 2 weeks. Patient was offered the alternative of penitentiary and he declined that. (2) Obstructive sleep apnea: Code(s): G47.33 - Obstructive sleep apnea (adult) (pediatric) Status: Chronic (3) Osteoarthritis of right knee: Qualifiers: Osteoarthritis type: primary Qualified Code(s): M17.11 - Unilateral primary osteoarthritis, right knee Code(s): M17.11 - Unilateral primary osteoarthritis, right knee Status: Chronic (4) Chronic kidney disease (CKD) stage G3a/A1, moderately decreased glomerular filtration rate (GFR) between 45-59 mL/min/1.73 square meter and albuminuria creatinine ratio less than 30 mg/g: Code(s): N18.3 - Chronic kidney disease, stage 3 (moderate) Status: Acute Assessment and Plan: Cr 3 (stable) Renal US shows medical disease Nephrology following, recommendations appreciated Avoid nephrotoxins Renally dose all meds Monitor (5) 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 and stage 1 chronic kidney disease: Code(s): I13.0 - Hypertensive heart and chronic kidney disease with heart failure and stage 1 through stage 4 chronic kidney disease, or unspecified chronic kidney disease; I50.41 - Acute combined systolic (congestive) and diastolic (congestive) heart failure; N18.1 - Chronic kidney disease, stage 1 Status: Acute Assessment and Plan: Echo with good (6) Stroke: Qualifiers: CVA mechanism: unspecified Qualified Code(s): I63.9 - Cerebral infarction, unspecified Code(s): I63.9 - Cerebral infarction, unspecified Status: Acute Assessment and Plan: MRI shows stroke -Moderate to l
--- NOTE | 2021-08-04 13:47 | WPDNEUROPN ---
Progress Note: A&P Additional Plan left hemispheric stroke with mixed dysphagia considering the renal status is started on valproic acid that is Depakote for patient will be followed by the cardiopulmonary supervisor and by us for the ongoing seizure disorder remains stable no surgical indication Review of Systems Review of Systems: All systems reviewed & are unremarkable except as noted in HPI and below Exam Const: General: cooperative, healthy appearing, comfortable and no acute distress Nutritional Appearance: average body habitus and overweight Orientation/consciousness: oriented to person and oriented to place Limitations: language barrier HENMT: Head: normal to inspection Ears: hearing grossly normal bilaterally General nose exam: Normal external nose present Face and sinus: normal facial exam Mouth: Yes Normal oral and palatal mucosa present Eyes: General: appearance normal, both eyes and all related structures Alignment and Position: alignment normal Periorbital: periorbital findings normal Eyelids: eyelids normal Conjunctivae: conjunctivae normal Sclera: sclerae normal Cornea: corneas normal Pupils: Equal, round and reactive pupils present EOM: EOMs intact bilaterally Neck: Neck: full ROM and no lymphadenopathy Carotids: normal carotid upstroke Resp: Effort & Inspection: normal respiratory effort and able to speak in complete sentences Auscultation: clear to auscultation bilaterally Cardio: Rate: regular rate Rhythm: regular rhythm Neuro: General: oriented to person, oriented to place and moves all extremities Cranial nerves: Yes Equal, round and reactive pupils present, Yes Normal accommodation reflex present, Yes Bilaterally intact EOM present, Yes Nystagmus not present, Yes Normal facial strength present, Yes facial symmetry, Yes Midline tongue present, Yes Normal gag reflex present, Yes Symmetric palate elevation present, Yes Ability to bilaterally rotate head present and Yes Ability to bilaterally elevate shoulders present Speech: Abnormal speech present ( mixed dysphagia) garbled Details: garbled Extrem: General: full ROM Psych: Mental Status: mental status grossly normal Affect: normal affect Attitude: cooperative and Other attitude/behavior findings present (Psych) Objective Data Vital Signs Vital Signs: Vital Signs - 24 hr 08/03/21 14:00 08/03/21 16:00 08/03/21 18:00 Temperature 37.4 C Pulse Rate 95 89 90 Respiratory Rate 18 20 Blood Pressure 110/76 161/91 H Pulse Oximetry 95 100 08/03/21 20:00 08/03/21 21:08 08/03/21 21:11 Temperature 36.8 C Pulse Rate 77 77 76 Respiratory Rate 18 Blood Pressure 170/84 H Pulse Oximetry 100 08/04/21 00:00 08/04/21 00:28 08/04/21 04:00 Temperature 36.4 C Pulse Rate 77 73 73 Respiratory Rate 18 Blood Pressure 139/62 Pulse Oximetry 99 08/04/21 05:35 08/04/21 05:40 08/04/21 08:00 Temperature 36.6 C Pulse Rate 66 79 75 Respiratory Rate 18 Blood Pressure 138/78 Pulse Oximetry 100 08/04/21 08:32 08/04/21 10:35 08/04/21 12:00 Temperature 35.7 C L Pulse Rate 79 74 82 Respiratory Rate 18 Blood Pressure 130/96 H Pulse Oximetry 100 Intake/Output Intake/Output: Intake & Output 08/01/21 08/02/21 08/03/21 08/04/21 23:59 23:59 23:59 23:59 Intake Total 1290 1280 1630 710 Output Total 1950 1550 1450 500 Balance -660 -270 180 210 Meds/Results Medications: Active Medications Generic Name Dose Route Start Last Admin Trade Name Anabela PRN Reason Stop Dose Admin Allopurinol 300 mg 07/28/21 09:00 08/04/21 08:32 Allopurinol 300 Mg Tablet PO 300 mg DAILY KAITLIN Administration Aspirin 81 mg 07/26/21 09:00 08/04/21 08:32 Aspirin 81 Mg Enteric Tablet PO 81 mg QAM KAITLIN Administration Carvedilol 50 mg 07/30/21 09:00 08/04/21 08:32 Carvedilol 25 Mg Tablet PO 50 mg Q12HR KAITLIN Administration Clopidogrel Bisulfate 75 mg 07/26/21 09:00 08/04/21 08:32 Clopidogrel Bisulfate 75 Mg Table
[2021-08-04] MEDS: cloNIDine HCL 0.1 MG TABLET PO (15:21)
== END 2021-08-04 16:45 | disposition home health service (06) | DRG 199 ==
LOC: ANHED 07-26 00:24 → ANHICU 07-26 06:50 → ANH2MED 07-30 09:43 → ANHICU 08-08 11:33
PROVIDERS: Family Medicine; Internal Medicine; Admitting Provider Internal Medicine; Emergency Provider Emergency Medicine; PCP Family Medicine; Visit Provider Internal Medicine
DX: I16.0 Hypertensive urgency (principal); I67.4 Hypertensive encephalopathy; I63.512 Cerebral infarction due to unspecified occlusion or stenosis of left middle cerebral artery; R13.19 Other dysphagia; R47.01 Aphasia; I13.0 Hypertensive heart and chronic kidney disease with heart failure and stage 1 through stage 4 chronic kidney disease, or unspecified chronic kidney disease; I50.41 Acute combined systolic (congestive) and diastolic (congestive) heart failure; N18.4 Chronic kidney disease, stage 4 (severe); G40.89 Other seizures; R77.8 Other specified abnormalities of plasma proteins; M17.11 Unilateral primary osteoarthritis, right knee; M10.30 Gout due to renal impairment, unspecified site; E78.5 Hyperlipidemia, unspecified; I27.20 Pulmonary hypertension, unspecified; I42.0 Dilated cardiomyopathy; I42.8 Other cardiomyopathies; D64.9 Anemia, unspecified; R60.9 Edema, unspecified; G47.33 Obstructive sleep apnea (adult) (pediatric); Z79.899 Other long term (current) drug therapy; Z91.19 Patient's noncompliance with other medical treatment and regimen
CPT/HCPCS: 36415; 36600; 70450; 70551; 71045; 76775; 80053; 80061; 80069; 80307; 81001; 82140; 82550; 82805; 83036; 83735; 83880; 84100; 84484; 85025; 85027; 85610; 85730; 87086; 87088; 92507; 92523; 93005; 93306; 93880; 96365; 96366; 97110; 97116; 97129; 97130; 97161; 97165; 97530; 97535; 99285; A9270; J0360; J7030

== ENCOUNTER 2021-08-08 10:28 | Observation (INO) | payer BC, SELFPAY ==
[2021-08-08] VITALS (14 sets, daily range): BP systolic 146–180; BP diastolic 86–108; PULSE 67–79; RESP 11–21; TEMP 36.4–36.7; O2SAT 98–100; BMI 36.2
--- NOTE | ~2021-08-08 | XR_ITS ---
EXAMINATION: XR chest 2V EXAM DATE: 08/08/2021 11:56 INDICATION: Chest pain. Hypertension. TECHNIQUE: Frontal and lateral projections of the chest obtained and reviewed. Comparison is made to prior examination from 07/25/2021. FINDINGS: There is cardiomegaly. No confluent consolidation, pneumothorax or pleural effusion suspec jacob. There are no osseous abnormalities identified. IMPRESSION: Cardiomegaly Reviewed, dictated and finalized at location B. IMPRESSION: Cardiomegaly
--- NOTE | 2021-08-08 11:40 | ECG_ITS ---
Measurements Intervals [place] Rate: 68 P: 47 WI: 207 QRS: -55 QRSD: 125 T: 29 QT: 417 QTc: 444 Interpretive Statements SINUS RHYTHM POSSIBLE LEFT ATRIAL ENLARGEMENT INCOMPLETE RIGHT BUNDLE BRANCH BLOCK LEFT ANTERIOR FASCICULAR BLOCK POSSIBLE LEFT VENTRICULAR HYPERTROPHY ANTEROLATERAL INFARCT, AGE INDETERMINATE BASELINE WANDER- II, III ABNORMAL ECG Electronically Signed On 08-08-2021 13:00:56 CDT by Keny Reid D.O.
[2021-08-08] MEDS: ASPIRIN 81 MG CHEWABLE TABLET 324 MG PO (11:44)
[2021-08-08 12:38] LABS: Basophils Absolute Auto 0.1 K/mm3 (0.0-0.1); Basophils Percent Auto 0.8 % (0.2-1.2); Eosinophils Absolute Auto 0.1 K/mm3 (0-0.3); Eosinophils Percent Auto 2.3 % (0-4.4); Hemoglobin 10.4 g/dL (14.0-18.0); Immature Granulocyte Absolute 0.01 K/mm3 (0.00-0.031); Immature Granulocyte Percent A 0.2 % (0-0.5); Lymphocytes Absolute Auto 0.93 K/mm3 (0.9-3.2); Mean Corpuscular HGB Conc 30.6 g/dl (32-36); Mean Corpuscular Hemoglobin 30.3 pg (26-34); Mean Corpuscular Volume 99.1 fl (80-100); Mean Platelet Volume 11.6 fl (7.4-10.4); Monocytes Absolute Auto 0.3 K/mm3 (0.1-0.6); Monocytes Percent Auto 5.3 % (2.6-8.5); Neutrophils Absolute Auto 4.7 K/mm3 (1.3-6.7); Neutrophils Percent Auto 76.4 % (45.5-73.1); Platelet Count Result 257 k/mm3 (150-375); Red Blood Count 3.43 M/mm3 (4.6-6.20); Red Cell Distribution Width 12.3 % (11.5-14.5); White Blood Count 6.2 K/mm3 (4.5-10.0)
--- NOTE | 2021-08-08 12:48 | ED.CHESTPAIN ---
HPI - Chest Pain General Chief Complaint: Recheck/Abnormal Lab/Rx Stated Complaint: high blood pressure Time Seen by Provider: 08/08/21 11:18 Source: patient Mode of arrival: ambulatory Limitations: clinical condition History of Present Illness HPI narrative: 61-year-old male History is quite difficult and limited because the patient has an expressive aphasia from a recent stroke, just discharged a few days ago after this with a hypertensive emergency Although would appear he is accurate with basic yes and no questions descriptors are not possible Appears that in recent days he has been experiencing chest discomfort, possibly pressure-like, with exertion It stops when he rests, and does not happen at other times Does not have a cough or fever or sweats, does not have nausea or vomiting, no dizziness, denies shortness of breath He has a little bit of swelling in his legs Related Data Home Medications Medication Instructions Recorded Confirmed carvedilol [Coreg] 25 mg PO Q12HR 08/08/21 08/08/21 Allergies Allergy/AdvReac Type Severity Reaction Status Date / Time No Known Allergies Allergy Unverified 07/26/21 11:56 Review of Systems Review of Systems: All systems reviewed & are unremarkable except as noted in HPI and below Constitutional: Constitutional: Denies chills, Denies fever(s) and Denies headache(s) ENT: Denies dysphagia and Denies headache(s) Cardiovascular: Cardiovascular: Reports chest pain and Denies dyspnea Respiratory: Respiratory: Denies cough and Denies dyspnea Gastrointestinal: Gastrointestinal: Denies abdominal pain, Denies diarrhea and Denies vomiting Musculoskeletal: Musculoskeletal: Denies deformity, Denies arthralgias, Denies joint swelling and Denies numbness Integumentary/Breasts: Skin/Breast: Denies rash and Denies wounds Neurologic: Denies headache(s) [facility] Past Medical History Medical History (Updated 08/08/21 @ 15:42 by Jose Ratliff MD) 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 Chronic kidney disease (CKD) stage G3a/A1, moderately decreased glomerular filtration rate (GFR) between 45-59 mL/min/1.73 square meter and albuminuria creatinine ratio less than 30 mg/g Chronic kidney disease, stage IV (severe) Hypertension 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 and stage 1 chronic kidney disease Obesity Obstructive sleep apnea Osteoarthritis of right knee Family History Family History Father Cerebrovascular accident Father Cerebrovascular accident Mother Cerebrovascular accident Sibling Acute myocardial infarction Social History Social History Smoking status: Never smoker Second hand tobacco smoke exposure: No Alcohol intake: never Substance use: never Gender identity (if verbalized by the patient): Male Spiritual care concerns: No Exam Const: General: cooperative, no acute distress and alert Orientation/consciousness: patient oriented x3 (alert) HENMT: Head: normal to inspection, normocephalic and atraumatic Ears: external ears normal General nose exam: no epistaxis Eyes: Conjunctivae: conjunctivae normal EOM: EOMs intact bilaterally Neck: Neck: normal visual inspection, supple and no JVD Resp: Effort & Inspection: normal respiratory effort and not labored Auscultation: clear to auscultation bilaterally, no rales, no rhonchi, no wheezes and other (BS =) Cardio: Rate: regular rate Rhythm: regular rhythm Heart sounds: no murmurs GI: GI Palp: Yes Soft to palpation and No Tenderness to palpation present (GI) Skin: General skin exam: normal color and no rashes or lesions noted Neuro: General: patient oriented x3 (alert) and moves all extremities Speech: normal speech Extrem: General: normal to ins
[2021-08-08 13:18] LABS: NT Pro B Type Natriuretic Pept 664 pg/mL (5-100); Troponin I 0.063 ng/mL (0.000-0.034)
[2021-08-08] MEDS: hydrALAZINE HCL 20 MG/ML VIAL 10 MG IV PUSH (13:18)
--- NOTE | 2021-08-08 14:30 | PM.IMHP ---
H&P: HPI History of Present Illness Date/Time: 08/08/21 14:30 <Eli Alejandre PA-C - Last Filed: 08/08/21 22:53> Chief Complaint: High blood pressure. <Eli Alejandre PA-C - Last Filed: 08/08/21 22:53> Narrative: This is a 61-year-old male with recent stroke with resultant expressive aphasia, hypertension, gout, chronic kidney disease, and sleep apnea with history of medication noncompliance and sleep apnea who presented to the emergency department earlier today via private vehicle from home with reports of high blood pressures. It is a bit difficult to obtain a history from the patient given his expressive aphasia and inability to right. He was recently admitted to the hospitalist service on 07/26/2021 at which time he presented with altered mental status and extremely high blood pressures. He was admitted to the ICU on a nicardipine drip and was found to have a moderate to large acute left frontal parietal lobe infarction. Speech improved somewhat during his stay and when ready for discharge he declined usp and wished to go home with a friend and home health. It is my understanding that his blood pressures have been running high despite him being compliant with his medication and thus he came in for evaluation today. In the emergency department it was thought that perhaps he was having chest pressure with exertion and improved with rest however he denied that to me. Thus it is unclear if the patient is completely comprehending what we are asking him or rather is he agreeing (he answers yes no questions seemingly without issue) as he cannot voice his concerns. In any regard, troponins were drawn and were a bit elevated though down from those drawn a couple of weeks ago, and I was asked to admit him in this setting. At the time my evaluation he has no complaints and is anxious to go home. He denies headache, vertigo, focal weakness, paresthesias, and dysphagia. He is not currently having chest pain, shortness of breath, nausea, vomiting, or sweats. <Eli Alejandre PA-C - Last Filed: 08/08/21 22:53> Review of Systems Review of Systems: Twelve systems were reviewed with pertinent positives and negatives as per HPI. Reports being compliant with his medications. He reports feeling just fine. No recent cold or flu symptoms. He denies fever, chills, and sweats. No nausea, vomiting, or diarrhea. No dysuria. Except as documented, all other systems were reviewed and are negative. <Eli Alejandre PA-C - Last Filed: 08/08/21 22:53> [facility] Past Medical History Medical History: Medical History (Updated 08/08/21 @ 22:51 by Eli Alejandre PA-C) Cerebrovascular accident Chronic anemia Chronic combined systolic and diastolic congestive heart failure EF as low as 30%, most recently estimated at 65 to 70% on 07/26/2021. Grade 1 diastolic dysfunction also noted at that time. Chronic kidney disease, stage IV (severe) Baseline creatinine ranges between 2.6 and 3.0. Focal and partial seizures Gout Hypertension Nonischemic cardiomyopathy Echocardiogram in September 2008 showed severe global left ventricular hypokinesis with an EF of 30% though EF had improved to 65 to 70% on echocardiogram on 07/26/2021. Obstructive sleep apnea He has not used his CPAP for years. Osteoarthritis of right knee <Eli Alejandre PA-C - Last Filed: 08/08/21 22:53> Surgical History Surgical History: Surgical History (Updated 08/08/21 @ 22:41 by Eli Alejandre PA-C) No history of previous surgery <Eli Alejandre PA-C - Last Filed: 08/08/21 22:53> Family History Family History: Family History Father Cerebrovascular accident Father Cerebrovascular accident Mother Cerebrovascular accident Sibling Acute myocardial infarction Aneurysm <Eli Alejandre PA-C - Last Filed: 08/08/21 22:53> Social History Social History: Social Hi
--- NOTE | 2021-08-08 14:56 | PC.NURSE ---
Purple top sent down around 1230 with green top. Lab states purple top was not sent down.
[2021-08-08 15:18] LABS: Alanine Aminotransferase 11 U/L (4-50); Albumin Level 3.9 g/dL (3.5-5.1); Alkaline Phosphatase 116 U/L (38-126); Anion Gap 9 mmol/L (8-16); Aspartate Amino Transferase 23 U/L (17-59); Bilirubin,Total 0.5 mg/dL (0.2-1.3); Blood Urea Nitrogen 39 mg/dL (9-20); Calcium 9.4 mg/dL (8.4-10.2); Carbon Dioxide 21 mmol/L (22-30); Chloride 110 mmol/L (98-107); Estimated CRCL calculation 38 ml/min; Estimated Glomerular Filt Rate 31; Glucose 115 mg/dL (65-110); Potassium 4.2 mmol/L (3.4-5.0); Sodium 140 mmol/L (137-145)
[2021-08-08] MEDS: LACTATED RINGERS 1,000 ML 125 ML IV CONT (15:25)
--- NOTE | 2021-08-08 15:26 | PC.NURSE ---
PT arrived to [facility], no c/o
--- NOTE | 2021-08-08 16:13 | PC.NURSE ---
Attempted to complete admission with patient, but pt is not able to answer all questions. Pt has a cousin, Caroline, listed as next of kin. Spoke with her and she attempted to help with medical history and current problems. She stated that the pt does not have a POA or living will and has been unable to live alone and has been staying with her. Contacted Care Coordination for follow up.
--- NOTE | 2021-08-08 17:47 | PC.NURSE ---
Pt's cousin also stated that pt wore a Bipap or Cpap in the past for sleep apnea, but has not worn it for awhile and the machine is outdated.
--- NOTE | 2021-08-08 18:36 | PC.NURSE ---
Notified Eli Alejandre at 1720 about elevated B/P
[2021-08-08 19:40] LABS: Troponin I 0.061 ng/mL (0.000-0.034)
[2021-08-08] MEDS: FUROSEMIDE 40 MG TABLET PO (22:00)
[2021-08-08] MEDS: DIVALPROEX SODIUM DR 250 MG TABEC 500 MG PO (22:01)
[2021-08-08] MEDS: NIFEdipine 30 MG TAB.ER.24 PO (22:01)
[2021-08-08] MEDS: carvediloL 25 MG TABLET PO (22:01)
[2021-08-09] VITALS (11 sets, daily range): BP systolic 151–164; BP diastolic 82–94; PULSE 63–80; RESP 14–20; TEMP 36.8; O2SAT 97–99
[2021-08-09] MEDS: DIVALPROEX SODIUM DR 250 MG TABEC 500 MG PO ×2 (06:21→14:04)
[2021-08-09] MEDS: DOCUSATE SODIUM 100 MG CAPSULE PO (07:55)
[2021-08-09] MEDS: CLOPIDOGREL BISULFATE 75 MG TABLET PO (07:55)
[2021-08-09] MEDS: ROSUVASTATIN 10 MG TABLET PO (07:55)
[2021-08-09] MEDS: ASPIRIN 81 MG ENTERIC TABLET PO (07:55)
[2021-08-09] MEDS: LOSARTAN POTASSIUM 100 MG TABLET PO (07:55)
[2021-08-09] MEDS: allopurinoL 300 MG TABLET PO (07:56)
[2021-08-09] MEDS: carvediloL 25 MG TABLET PO (07:56)
[2021-08-09] MEDS: FUROSEMIDE 40 MG TABLET PO ×2 (07:56→17:19)
--- NOTE | 2021-08-09 09:18 | PM.CNCAR ---
Assessment and Plan Assessment and plan (1) Elevated troponin: Code(s): R77.8 - Other specified abnormalities of plasma proteins Status: Acute Assessment and Plan: Chronic, flat curve without anginal symptoms of any kind not secondary to acute coronary syndrome and/or plaque rupture but type 2 infarction related to uncontrolled hypertension, chronic kidney disease and is a reflection of chronic troponin elevation upon review of records. Will set up follow-up as an outpatient within [address] Hayes in our office. No further invasive workup recommended at this time. Last echocardiogram EF preserved with severe LVH 07/26/21 personally reviewed. If BP reasonably controlled and pt remains asymptomatic stable for discharge from cardiac perspective. Disposition per Hospitalist Service. (2) Hypertensive heart disease: Code(s): I11.9 - Hypertensive heart disease without heart failure Status: Acute Assessment and Plan: BP remains uncontrolled although patient claims compliance with medications. Further adjustment of antihypertensives. Compliance with medications and recommendations strongly advised. Patient verbalizes understanding. Further management per primary service. May uptitrate nifedipine to 60 mg daily. Echo consistent with hypertensive heart disease. (3) Recent cerebrovascular accident: Code(s): Z86.73 - Personal history of transient ischemic attack (TIA), and cerebral infarction without residual deficits Status: Acute Assessment and Plan: Increase Rosuvastatin to 40 mg at bedtime goal LDL less than 70. Persistent expressive aphasia. Remains on dual antiplatelet therapy. (4) H/O cardiomyopathy: Code(s): Z86.79 - Personal history of other diseases of the circulatory system Status: Acute Assessment and Plan: EF 65-70% severe LVH. No decompensated heart failure at present clinically. Continue Lasix 40 mg p.o. b.i.d.. (5) CAD (coronary artery disease): Code(s): I25.10 - Atherosclerotic heart disease of [place] coronary artery without angina pectoris Status: Acute Assessment and Plan: No anginal symptoms. History of minimal luminal irregularities on [facility] 2007 as workup consistent nonischemic cardiomyopathy. Troponins elevated at that time as well in 2007. (6) Dyslipidemia: Code(s): E78.5 - Hyperlipidemia, unspecified Status: Acute Assessment and Plan: LDL goal less than 70 earlier this month LDL 125 poorly controlled given patient's history. (7) Chronic kidney disease (CKD) stage G3a/A1, moderately decreased glomerular filtration rate (GFR) between 45-59 mL/min/1.73 square meter and albuminuria creatinine ratio less than 30 mg/g: Code(s): N18.3 - Chronic kidney disease, stage 3 (moderate) Status: Acute Assessment and Plan: Stable at present. Likely secondary to hypertensive heart disease. (8) COLETTE on CPAP: Code(s): G47.33 - Obstructive sleep apnea (adult) (pediatric); Z99.89 - Dependence on other enabling machines and devices Status: Acute Assessment and Plan: Compliance with CPAP strongly advised. Patient verbalized understanding. History of Present Illness History of Present Illness Consult date/time: Date of service: 08/09/21 09:18 Cardiology consultation at the request of RAFAEL Chiu of the [facility] for our opinion regarding reported chest pain and elevated troponin. Requesting physician: Eli Alejandre PA-C Consult reason: chest pain and Other (elevated troponin) Reason For Visit: chest pain,hypertension Narrative: Patient is a pleasant 61-year-old male with a past medical history significant for nonischemic cardiomyopathy EF 60-65% by echocardiogram July 2021, minimal nonobstructive CAD (luminal irregularities on [facility] 2007), history of malignant hypertension, chronic kidney disease stage 3-4, dyslipidemia, COLETTE with intermitten
[2021-08-09 10:18] LABS: Anion Gap 8 mmol/L (8-16); Blood Urea Nitrogen 33 mg/dL (9-20); Calcium 9.5 mg/dL (8.4-10.2); Carbon Dioxide 25 mmol/L (22-30); Chloride 108 mmol/L (98-107); Estimated CRCL calculation 39 ml/min; Estimated Glomerular Filt Rate 32; Glucose 125 mg/dL (65-110); Sodium 141 mmol/L (137-145)
--- NOTE | 2021-08-09 14:43 | PM.DS ---
DS: Admitting Diagnosis Discharge Date 08/09/2021 Admitting Diagnosis Hypertension, elevated troponin DS: Discharge Diagnosis Discharge Diagnosis (1) Elevated troponin: Code(s): R77.8 - Other specified abnormalities of plasma proteins Status: Acute Assessment and Plan: Troponin was elevated though lower than those drawn just a couple of weeks ago at most recent admission. He denied chest pain. He was seen in consultation by cardiology. [place] to be related to type 2 infarction from uncontrolled hypertension and CKD. Troponins chronically elevated. (2) Hypertension: Code(s): I10 - Essential (primary) hypertension Status: Acute Assessment and Plan: Blood pressures since admission were as high as 180/108 but improved with IV hydralazine received in the emergency department. He has historically poorly controlled blood pressure. His nifedipine was increased to 60 mg daily. Blood pressures were reasonably controlled at time of discharge, in the 160s/80s. Continue carvedilol, losartan, nifedipine, and furosemide. Encouraged monitoring of blood pressures at home two times per day and keeping a log. (3) Chronic kidney disease, stage IV (severe): Code(s): N18.4 - Chronic kidney disease, stage 4 (severe) Status: Chronic Assessment and Plan: Renal function remained at baseline. (4) Chronic anemia: Code(s): D64.9 - Anemia, unspecified Status: Acute Assessment and Plan: Hemoglobin and hematocrit stable on review of previous labs. (5) Focal and partial seizures: Code(s): G40.109 - Localization-related (focal) (partial) symptomatic epilepsy and epileptic syndromes with simple partial seizures, not intractable, without status epilepticus Status: Acute Assessment and Plan: Continue depakote (6) Recent cerebrovascular accident: Code(s): Z86.73 - Personal history of transient ischemic attack (TIA), and cerebral infarction without residual deficits Status: Acute Assessment and Plan: Has been doing well with home health and will continue. DS: Summary Hospital Course Hospital Course: Date of admission: 08/08/21 Date of discharge: 08/09/21 Vladimir Montes Jr is a 61 year old male with a history of recent stroke with hospital admission July 26, 2021 with resultant expressive aphasia, hypertension, chronic kidney disease, and sleep apnea, several other comorbidities who presented to the emergency department on 08/08/2021 with reports of elevated blood pressure readings. On presentation to the emergency department, his blood pressure was elevated at 160 3/99 with additional vital signs stable, laboratory workup revealing elevated troponin 0.063, and CXR showed cardiomegaly. He was admitted to the hospitalist service for further evaluation and management and was seen in consultation by Cardiology. Please see above for further details. His blood pressures improved and he was asymptomatic. Given his overall improvement, he was determined to no longer require inpatient care and was felt to be stable for discharge. Discussed with him worrisome signs and symptoms for which to return and I educated him on medication changes. He was discharged in hemodynamically stable condition on 08/09/2021 Status at Discharge Functional status at discharge: independent ambulation Overall status at discharge: patient is back to baseline Time Spent with Patient Time attestation: Total time spent providing and/or coordinating discharge services: 45 minutes Time spent: Greater than 30 minutes Exam Narrative: Mr. Montes is a well-nourished, well-appearing 61-year-old male who is lying semi recumbent in bed. He appears comfortable and is in no acute respiratory distress. Neuro: Awake, able to state his name. He has expressive aphasia but is able to answer questions with yes or no HEENT: Normocephalic, atraumatic, EOMI, sclerae anicteric, m
== END 2021-08-09 17:45 | disposition home health service (06) ==
LOC: ANHED 11:18 → ANHCPC 15:09
PROVIDERS: Physician Assistant; Admitting Provider Internal Medicine; Emergency Provider Emergency Medicine; PCP Family Medicine; Visit Provider Hospitalist
DX: R77.8 Other specified abnormalities of plasma proteins (principal); I69.320 Aphasia following cerebral infarction; G47.33 Obstructive sleep apnea (adult) (pediatric); I13.0 Hypertensive heart and chronic kidney disease with heart failure and stage 1 through stage 4 chronic kidney disease, or unspecified chronic kidney disease; N18.4 Chronic kidney disease, stage 4 (severe); I50.42 Chronic combined systolic (congestive) and diastolic (congestive) heart failure; D63.1 Anemia in chronic kidney disease; G40.109 Localization-related (focal) (partial) symptomatic epilepsy and epileptic syndromes with simple partial seizures, not intractable, without status epilepticus; I25.10 Atherosclerotic heart disease of native coronary artery without angina pectoris; Z91.14 Patient's other noncompliance with medication regimen
CPT/HCPCS: 36415; 71046; 80048; 80053; 80164; 80165; 83880; 84484; 85025; 93005; 96374; 97165; 99285; A9270; G0378; G0379; J0360; J7120